=== PATIENT | female | born 1990 ===

== ENCOUNTER 2020-03-01 19:22 | Emergency (ER) | payer OTHER, SELFPAY ==
[2020-03-01 19:42] VITALS: BP 133/64; PULSE 71; RESP 16; TEMP 37.7; O2SAT 100; BMI 58.6
--- NOTE | 2020-03-01 19:42 | PC.NURSE ---
waiting for singing telegram performer to arrive.
--- NOTE | 2020-03-01 20:52 | XR_ITS ---
EXAMINATION: XR CHEST CLINICAL INFORMATION: Shortness of breath COMPARISON: None TECHNIQUE: Frontal view of the chest was obtained. 8:58 PM FINDINGS: No significant abnormality is noted involving the heart, lungs, mediastinum, bony thorax or soft tissues. XR/XR chest 1V IMPRESSION: Unremarkable examination.
[2020-03-01] MEDS: predniSONE 20 MG TABLET 40 MG PO (21:12)
[2020-03-01] MEDS: Albuterol/Iprat 2.5/0.5MG 3 ML AMPUL.NEB INHALE (21:28)
[2020-03-01 21:51] LABS: Anion Gap 13 (12-20); Blood Urea Nitrogen 15 mg/dL (9-16); Calcium 8.4 mg/dL (8.4-10.2); Carbon Dioxide 21 mmol/L (22-29); Chloride 110 mmol/L (96-108); Estimated Glomerular Filt Rate > 60; Glucose Random 89 mg/dL (60-115); Potassium 3.9 mmol/l (3.3-5.1); Sodium 140 mmol/L (135-145)
[2020-03-01 21:56] LABS: Troponin-I High Sensitivity < 3.5 ng/L (<3.5-17.0)
[2020-03-01 22:03] LABS: D Dimer < 200 NG/ML
[2020-03-01 22:38] VITALS: BP 115/68; PULSE 80; RESP 14; O2SAT 99
[2020-03-01 22:42] LABS: Glucose Urine UA NEG (NEG); Leukocyte Esterase Urine NEG (NEG); Nitrite Urine NEG (NEG); PH 6.5 (5.0-8.0); Urine Blood NEG (NEG); Urine Ketones NEG (NEG); Urine Protein NEG (NEG-TRACE)
[2020-03-01 22:44] LABS: Appearance Urine CLEAR; Color Urine YELLOW; UPreg QC Valid YES; Urine Pregnancy NEGATIVE (NEGATIVE)
--- NOTE | 2020-03-01 23:18 | ED_ITS ---
HPI - Asthma General Chief Complaint: Asthma Stated Complaint: Asthma Time Seen by Provider: 03/01/20 20:51 Source: patient and public health internship Mode of arrival: ambulatory Limitations: no limitations History of Present Illness HPI Narrative: 30-year-old female with history of asthma presented with 2 days of progressive shortness of breath, wheezing, runny nose, patient also had 1 episode of epistaxis which resolved now, patient had a history of childhood asthma. Symptoms was progressively worsening since yesterday, patient describing as constant, with chest tightness and discomfort, but no radiation, associated with runny nose, dry cough, no alleviating factor, worsen by exercising. Related Data Previous Rx's Medication Instructions Recorded albuterol sulfate [ProAir HFA] 1 inh INHALATION QID PRN #18 g 03/01/20 prednisone 20 mg PO BID #10 tab 03/01/20 Allergies Allergy/AdvReac Type Severity Reaction Status Date / Time No Known Allergies Allergy Unverified 01/08/20 19:38 [No Known Allergies*] Review of Systems Review of Systems: All other systems are reviewed and are negative Constitutional: Reports as per HPI and Reports no additional constitutional complaints Eyes: Reports as per HPI and Reports no additional eye complaints Reports system reviewed and no additional complaints, except as documented Cardiovascular: Reports as per HPI and Reports no additional cardiovascular complaints Respiratory: Reports as per HPI and Reports no additional respiratory complaints Gastrointestinal: Reports as per HPI and Reports no additional gastrointestinal complaints Genitourinary: Reports no additional female genitourinary complaints Musculoskeletal: Reports no additional musculoskeletal complaints Skin/Breast: Reports system reviewed and no additional complaints, except as docu Psychiatric: Reports no additional psychiatric complaints Endocrine: Reports no additional endocrine complaints Hematologic/Lymphatic: Reports no additional hematologic/lymphatic complaints Allergic/Immunologic: Reports no additional allergic/immunologic complaints Reports system reviewed and no additional complaints, except as documented and Reports Abnormal speech present [facility] Past Medical History Medical History Asthma Social History Social History Alcohol intake: never Smoking Status: Never smoker Use of substances other than those prescribed or required for medical reasons: No Advance Directives: No Advance Directives Information Provided: Yes Physical Exam Vital Signs: Vital Signs: Last Vital Signs Temp 99.8 F 03/01/20 19:42 Pulse 80 03/01/20 22:38 Resp 14 03/01/20 22:38 BP 115/68 03/01/20 22:38 Pulse Ox 99 03/01/20 22:38 Body Mass Index 58.6 Vital signs have been reviewed as normal and appeared to be correct. Blood pressure normal. Heart rate normal. Respiration rate normal. Temperature normal. Oxygen saturation normal. Appearance: Alert. Oriented X3. No acute distress. Head: Normal external exam. Normocephalic. Atraumatic. No Galarza signs noted. No raccoon eyes noted Eyes: PERRLA. EOMI. Conjunctiva and sclera normal. Eyelids normal. ENT: EAC normal. TM's Normal. Pharynx normal. Uvula midline. Moist mucous membranes. No trismus noted. No drooling noted. No muffled voice noted. Neck: Normal inspection. Neck supple. FROM. No adenopathy. Thyroid Normal. No m eningeal signs. No neck mass noted. CVS: Normal heart rate and rhythm. Heart sound normal. No murmurs noted. Pulses normal throughout. Respiratory: No respiratory distress. Painless inspiration. Breath sounds normal. rales/rhonchi noted. Positive mild diffuse expiratory wheezing with prolonged expiratory phase, Chest nontender. No accessory muscle usage noted or decreased air movement noted. Abdomen: Soft and nontender. Bowel sounds normal in all 4 quadrants. No distention noted. No organomegaly noted. No visible injury noted. Back: No CVA tenderness. Full range of motion noted. Skin: Skin warm and dry. Normal skin color. Normal skin turgor. No rashes/lesions/lacerations noted. Extremities: No lower extremity edema. Extremities exhibit normal range of motion. Extremities nontender. Neuro: Oriented X 3. No motor deficit. No sensory deficit. Reflexes normal. Course Course Course Narrative: Acute bronchitis/asthma exacerbation. Check x-ray/labs/COVID testing. Bronchodilator/prednisone/reassess. MDM - Asthma MDM Narrative Medical decision making narrative: Assessment and plan. Acute bronchitis likely secondary to upper respiratory infection, patient feels better with prednisone/bronchodilator, COVID testing is negative, patient maintaining O2 sat and normal vital sign. D-dimer is less than 200 which is negative no concern of DVT/PE. Will discharge home with prednisone and bronchodilator. Differential Diagnosis Differential diagnosis: Likely Acute exacerbation and Pneumonia Lab Data Attestation: I reviewed the patient's lab results. Result diagrams: 03/01/20 21:21 03/01/20 21:21 Labs: Lab Results 03/01/20 03/01/20 03/01/20 Range/Units 21:20 21:20 21:21 D-Dimer Cancelled Sodium 140 (135-145) mmol/L Potassium 3.9 (3.3-5.1) mmol/l Chloride 110 H (96-108) mmol/L Carbon Dioxide 21 L (22-29) mmol/L Anion Gap 13 (12-20) BUN 15 (9-16) mg/dL Creatinine 0.77 (0.5-1.4) mg/dL Estim Creat Clear Calc 157.0 Estimated GFR > 60 Random Glucose 89 (60-115) mg/dL Calcium 8.4 (8.4-10.2) mg/dL Troponin I High Sens < 3.5 (<3.5-17.0) ng/L Urine Color Urine Appearance Urine pH (5.0-8.0) Ur Specific [place] (1.005-1.025) Urine Protein (NEG-TRACE) MG/DL Urine Glucose (UA) (NEG) MG/DL Urine Ketones (NEG) MG/DL Urine Blood (NEG) Urine Nitrite (NEG) Ur Leukocyte Esterase (NEG) Urine Test (NEGATIVE) Coronavirus (PCR) (Negative) 03/01/20 03/01/20 03/01/20 Range/Units 21:37 22:27 22:27 D-Dimer < 200 Sodium (135-145) mmol/L Potassium (3.3-5.1) mmol/l Chloride (96-108) mmol/L Carbon Dioxide (22-29) mmol/L Anion Gap (12-20) BUN (9-16) mg/dL Creatinine (0.5-1.4) mg/dL Estim Creat Clear Calc Estimated GFR Random Glucose (60-115) mg/dL Calcium (8.4-10.2) mg/dL Troponin I High Sens (<3.5-17.0) ng/L Urine Color Urine Appearance Urine pH (5.0-8.0) Ur Specific [place] (1.005-1.025) Urine Protein (NEG-TRACE) MG/DL Urine Glucose (UA) (NEG) MG/DL Urine Ketones (NEG) MG/DL Urine Blood (NEG) Urine Nitrite (NEG) Ur Leukocyte Esterase (NEG) Urine Test NEGATIVE (NEGATIVE) Coronavirus (PCR) NEGATIVE (Negative) 03/01/20 Range/Units 22:27 D-Dimer Sodium (135-145) mmol/L Potassium (3.3-5.1) mmol/l Chloride (96-108) mmol/L Carbon Dioxide (22-29) mmol/L Anion Gap (12-20) BUN (9-16) mg/dL Creatinine (0.5-1.4) mg/dL Estim Creat Clear Calc Estimated GFR Random Glucose (60-115) mg/dL Calcium (8.4-10.2) mg/dL Troponin I High Sens (<3.5-17.0) ng/L Urine Color YELLOW Urine Appearance CLEAR Urine pH 6.5 (5.0-8.0) Ur Specific [place] 1.020 (1.005-1.025) Urine Protein NEG (NEG-TRACE) MG/DL Urine Glucose (UA) NEG (NEG) MG/DL Urine Ketones NEG (NEG) MG/DL Urine Blood NEG (NEG) Urine Nitrite NEG (NEG) Ur Leukocyte Esterase NEG (NEG) Urine Test (NEGATIVE) Coronavirus (PCR) (Negative) Discharge Plan Discharge Clinical Impression: Acute bronchitis Qualifiers: Bronchitis organism: unspecified organism Qualified Code(s): J20.9 - Acute bronchitis, unspecified Asthma with acute exacerbation Qualifiers: Asthma severity: mild Asthma persistence: intermittent Qualified Code(s): J45.21 - Mild intermittent asthma with (acute) exacerbation Patient Disposition: Home, Self-Care Instructions: Acute Bronchitis (ED) Prescriptions: New albuterol sulfate [ProAir HFA] 90 mcg/actuation HFA aerosol inhaler 1 inh inhalation QID PRN (Reason: shortness of breath or wheezing) Qty: 18 RF: 0 prednisone 20 mg tablet 20 mg PO BID Qty: 10 RF: 0 Referrals: Rae Hernandez MD [Primary Care Provider] - 2 days
[2020-03-01 23:30] LABS: SARS COV2 PCR INHOUSE NEGATIVE (Negative)
== END 2020-03-01 23:48 | disposition home or self-care (01) ==
PROVIDERS: Emergency Provider Emergency Medicine; PCP Internal Medicine
DX: J20.9 Acute bronchitis, unspecified (principal); J45.21 Mild intermittent asthma with (acute) exacerbation; Z20.828 Contact with and (suspected) exposure to other viral communicable diseases; Z79.899 Other long term (current) drug therapy
CPT/HCPCS: 36415; 71045; 80048; 81003; 81025; 84484; 85379; 94640; 99284; U0003

== ENCOUNTER 2020-03-17 08:07 | Outpatient (REF) | payer OTHER, SELFPAY | END 2020-03-17 08:08 | disposition home or self-care (01) | LOC: HO.LAB 08:07 | PROVIDERS: Visit Provider Internal Medicine | DX: Z20.828 Contact with and (suspected) exposure to other viral communicable diseases (principal) | CPT/HCPCS: C9803; U0003 ==

== ENCOUNTER 2020-04-25 00:37 | Emergency (ER) | payer OTHER, SELFPAY ==
[2020-04-25 00:42] VITALS: BP 133/84; PULSE 91; RESP 16; TEMP 36.9; O2SAT 99; BMI 26.4
[2020-04-25 01:28] LABS: Glucose, Whole Blood 95 mg/dL (60-115)
--- NOTE | 2020-04-25 01:54 | ED.GENADULT ---
HPI - General Adult General Chief complaint: Dizziness Stated complaint: DIZZINESS Time Seen by Provider: 04/25/20 01:46 Source: patient Mode of arrival: ambulatory Limitations: language barrier History of Present Illness HPI narrative: Patient with multiple complaints complaining of dry mouth and drinking lots of water and urinating a lot asked her PCP sent her here for check for diabetes also patient had COVID test done 4 days ago report still pending patient previous blood sugar in February was normal denies any cough or shortness of breath no nausea or vomiting Onset (ago): week(s) (1) Related Data Previous Rx's Medication Instructions Recorded albuterol sulfate [ProAir HFA] 1 inh INHALATION QID PRN #18 g 03/01/20 prednisone 20 mg PO BID #10 tab 03/01/20 Allergies Allergy/AdvReac Type Severity Reaction Status Date / Time No Known Allergies Allergy Verified 04/25/20 00:42 [No Known Allergies*] Review of Systems Review of Systems: Yes all other systems are reviewed and are negative PMFSH Past Medical History Medical History Asthma Hx of ovarian cyst Surgical History Hx of section Social History Social History Alcohol intake: never Smoking Status: Never smoker Advance Directives: No Advance Directives Information Provided: No Physical Exam Vital Signs: Vital Signs: Last Vital Signs Temp 98.4 F 04/25/20 00:42 Pulse 91 04/25/20 00:42 Resp 16 04/25/20 00:42 BP 133/84 04/25/20 00:42 Pulse Ox 99 04/25/20 00:42 Body Mass Index 26.4 Appearance: Alert. Oriented X3. No acute distress. Anxious Eyes: Pupils equal, round and reactive to light. ENT: Pharynx normal. Moist oral mucosa no lesions Neck: Normal inspection. Neck supple. CVS: Normal heart rate and rhythm. Pulses normal. Respiratory: No respiratory distress. Breath sounds normal. Abdomen: Soft and nontender. Bowel sounds are present, no mass palpable, no CVA tenderness Skin: Skin warm and dry. Normal skin color. Normal skin turgor. Extremities: No lower extremity edema. Neuro: Oriented X 3. No motor deficit. No sensory deficit. Course Course Course Narrative: Patient's blood sugar 95 no diabetic symptoms likely from anxiety patient already has a COVID test and results will come soon patient advised to follow with PCP Medical Decision Making Lab Data Labs: Lab Results 04/25/20 Range/Units 01:22 POC Glucose 95 (60-115) mg/dL Discharge Plan Discharge Prescriptions: No Action albuterol sulfate [ProAir HFA] 90 mcg/actuation HFA aerosol inhaler 1 inh inhalation QID PRN (Reason: shortness of breath or wheezing) Qty: 18 RF: 0 prednisone 20 mg tablet 20 mg PO BID Qty: 10 RF: 0
[2020-04-25 02:12] LABS: Glucose Urine UA NEG (NEG); Leukocyte Esterase Urine NEG (NEG); Nitrite Urine NEG (NEG); Specific Gravity - Urine >= 1.030 (1.005-1.025); Urine Blood TRACE (NEG); Urine Ketones NEG (NEG); Urine Protein NEG (NEG-TRACE)
[2020-04-25 03:02] LABS: Appearance Urine CLEAR; Color Urine YELLOW
[2020-04-25 03:15] LABS: Squamous Epithelial Cell Urine TRACE /LPF; WBC Urine 0 /HPF (0-4)
[2020-04-25 03:16] LABS: UPreg QC Valid YES; Urine Pregnancy NEGATIVE (NEGATIVE)
== END 2020-04-25 03:44 | disposition home or self-care (01) ==
PROVIDERS: Emergency Provider Internal Medicine
DX: R42 Dizziness and giddiness (principal); Z20.828 Contact with and (suspected) exposure to other viral communicable diseases
CPT/HCPCS: 81001; 81003; 81025; 82947; 99283

== ENCOUNTER 2022-09-07 23:47 | Emergency (ER) | payer OTHER, SELFPAY ==
[2022-09-07 23:50] VITALS: BP 104/59; PULSE 91; RESP 18; TEMP 36.6; O2SAT 97; BMI 24.4
[2022-09-08 00:01] VITALS: BP 128/56; PULSE 78; RESP 17; O2SAT 99
--- NOTE | 2022-09-08 00:05 | ED.ALLEREA ---
HPI - Allergic Reaction General Chief complaint: Allergic Reaction Stated complaint: ?Allergic reaction Time Seen by Provider: 09/08/22 00:04 Source: patient Mode of arrival: ambulatory Limitations: no limitations History of Present Illness HPI narrative: Patient with no history of allergic reaction noticed hives on bilateral arms feel throat closing lips tingling just prior to arrival unknown allergen no shortness of breath speaking full sentences no nausea no vomiting unknown allergen Related Data Previous Rx's Medication Instructions Recorded albuterol sulfate 90 mcg/actuation 1 inh inhalation QID PRN shortness 03/01/20 aerosol inhaler (ProAir HFA) of breath or wheezing #18 grams prednisone 20 mg tablet 20 mg PO BID #10 tabs 03/01/20 Allergies Allergy/AdvReac Type Severity Reaction Status Date / Time No Known Allergies Allergy Verified 09/07/22 23:50 [No Known Allergies*] Review of Systems Review of Systems: Yes all other systems are reviewed and are negative PMFSH Past Medical History Medical History Asthma Hx of ovarian cyst Surgical History Hx of section Social History Social History Alcohol intake: current Alcohol intake frequency: holidays/special occasions only Smoked in Last 30 Days: No Use of substances other than those prescribed or required for medical reasons: No Advance Directives: No Advance Directives Information Provided: Yes Physical Exam ED Vital Signs: Vital Signs - 24 hr 09/07/22 23:50 09/08/22 00:01 Temperature 97.9 F Pulse Rate 91 78 Respiratory Rate 18 17 Blood Pressure 104/59 L 128/56 L Pulse Oximetry 97 99 Oxygen Delivery Method Room Air Room Air BMI result Body Mass Index 24.4 Appearance: Alert. Oriented X3. No acute distress. ENT: Pharynx normal. Oral Mucosa moist slight swelling of the lower lip tongue normal uvula normal no stridor Neck: Normal inspection. Neck supple. CVS: Normal heart rate and rhythm. Pulses normal. Respiratory: No respiratory distress. Equal air entry bilateral, Abdomen: Soft and nontender. Bowel sounds are present, Skin: Skin warm and dry. Hives on upper extremity Extremities: No lower extremity edema. No calf tenderness Neuro: Oriented X 3. Medications Administered Discontinued Medications Generic Name Dose Route Start Last Admin Trade Name Freq PRN Reason Stop Dose Admin Diphenhydramine HCl 25 mg 09/08/22 00:07 09/08/22 00:19 Diphenhydramine Hcl 50 Mg/Ml Vial IVPUSH 09/08/22 00:08 25 mg ONCE ONE Administration Famotidine 20 mg 09/08/22 00:07 09/08/22 00:19 Famotidine/Pf 20 Mg/2 Ml Vial IVPUSH 09/08/22 00:08 20 mg ONCE ONE Administration Methylprednisolone Sodium Succinate 125 mg 09/08/22 00:07 09/08/22 00:19 Methylprednisolone Sod Succ 125 Mg/2 Ml Vial IVPUSH 09/08/22 00:08 125 mg ONCE ONE Administration Medical Decision Making Medical Decision Making [facility] Narrative: Patient with mild allergic reaction it is pointed to Benadryl and Solu-Medrol unknown allergen discharge patient home on Benadryl and prednisone Discharge Plan Discharge Clinical Impression: Allergic reaction Prescriptions: No Action albuterol sulfate [ProAir HFA] 90 mcg/actuation HFA aerosol inhaler 1 inh inhalation QID PRN (Reason: shortness of breath or wheezing) Qty: 18 0RF prednisone 20 mg tablet 20 mg PO BID Qty: 10 0RF
[2022-09-08] MEDS: methylPREDNISolone Sod Succ 125 MG/2 ML VIAL IVPUSH (00:19)
[2022-09-08] MEDS: diphenhydrAMINE HCL 50 MG/ML VIAL 25 MG IVPUSH (00:19)
[2022-09-08] MEDS: Famotidine/PF 20 MG/2 ML VIAL IVPUSH (00:19)
--- NOTE | 2022-09-08 00:30 | PC.NURSE ---
pt brought back from waiting room, appears to be moving air well, lung sounds clear bilaterally, throat does not appear to be swelling, no redness. Pt has bilateral redness on arms and legs, denies itchiness. Pt verbalizes her throat feeling better after medications
== END 2022-09-08 01:07 | disposition home or self-care (01) ==
PROVIDERS: Emergency Provider Internal Medicine; PCP Internal Medicine
DX: L50.0 Allergic urticaria (principal)
CPT/HCPCS: 96374; 96375; 99284; J1200; J2930

== ENCOUNTER 2022-11-05 19:00 | Emergency (ER) | payer OTHER, SELFPAY ==
--- NOTE | ~2022-11-05 | US_ITS ---
EXAMINATION: US PELVIS CLINICAL INFORMATION: Lower abdominal pain radiating to umbilical area COMPARISON: None available. TECHNIQUE: Ultrasound of the pelvis is performed using both transabdominal and transvaginal transducers along with Doppler. Transvaginal imaging is performed due to inadequate visualization transabdominally. FINDINGS: Uterus: Surgically absent Adnexa: Both ovaries are visualized. There is normal color flow to the adnexa. There is no ovarian torsion. There is no pelvic ascites or fluid collection. Right ovary measures 3.0 x 1.7 x 2.1 cm. Volume 5.6 mL. Positive Doppler arterial and venous waveform seen. Small likely involuted 1.9 cm cyst incidentally noted Left ovary measures 1.9 x 1.1 x 1.7 cm. Volume 1.9 mL. Normal appearing arterial and venous waveform patterns. No significant free fluid US/US pelvic and transvaginal IMPRESSION: Uterus is surgically absent. No acute abnormality seen.
--- NOTE | ~2022-11-05 | CT_ITS ---
EXAMINATION: CT ABDOMEN AND PELVIS WITH CONTRAST CLINICAL INFORMATION: Lower abdominal pain radiating upwards. History of tummy tuck . COMPARISON: Ultrasound pelvis 11/05/2022 TECHNIQUE: Multidetector volumetric images were obtained from the superior aspect of the liver through the pubic symphysis following administration 85 mL of Omnipaque 350 intravenous contrast. Sagittal and coronal reformatted images were obtained on the technologist's workstation. Oral contrast: No This CT examination was performed using dose optimization techniques as appropriate, variously including the following: *Automated exposure control *Adjustment of mA and/or kV according to patient size (this includes techniques or standardized protocols for targeted exams where dose is matched to indication/reason for exam; i.e. extremities or head) *Use of iterative reconstruction technique DLP: 511 mGy-cm FINDINGS: LUNG BASES: The visualized lung bases are unremarkable. LIVER, GALLBLADDER, AND BILIARY TREE: The liver is enlarged measuring 19.6 cm in cephalocaudad dimension with decreased attenuation suggesting hepatic steatosis. No focal hepatic lesion or biliary ductal dilatation is present. The gallbladder is unremarkable with no evidence of radiopaque gallstones, gallbladder wall thickening, or obvious pericholecystic inflammatory changes. PANCREAS: Unremarkable. SPLEEN: Unremarkable. ADRENAL GLANDS: Unremarkable. KIDNEYS AND URETERS: The kidneys are normal in size, shape, and attenuation. No hydronephrosis, hydroureter, or calculi seen. No perinephric stranding. BLADDER: Unremarkable. GASTROINTESTINAL TRACT: The small and large bowel are unremarkable without evidence of obstruction. There are inflammatory changes seen in the pelvic fat surrounding the bladder and lower portion of the mesentery. The appendix is unremarkable. ABDOMINAL WALL: No significant hernia is appreciated. Some mild streaky changes are seen in the infra umbilical region in the abdominal wall but no fluid collections are seen. LYMPH NODES: No retroperitoneal lymphadenopathy. Some inflammatory changes are seen in the fat surrounding the dome of the bladder and some pelvic mesentery of uncertain significance. Correlate with urinalysis for cystitis an operative history. VASCULAR: The aorta and iliofemoral vessels all appear normal. The IVC,, renal veins, portal venous system and hepatic veins all appear normal. Of note, the right gonadal/ovarian vein is dilated and contains thrombus (6:32). The thrombus ends a few cm before the junction with the IVC. A left ovarian vein is unremarkable. PELVIC VISCERA: Uterus is not present. An abnormal adnexal mass is not seen. OSSEOUS STRUCTURES: Unremarkable. CT/CT abdomen pelvis w IV con IMPRESSION: 1. Right ovarian vein thrombosis. 2. Incidental note made of an enlarged fatty liver. 3. There are inflammatory changes seen in the fat surrounding some small bowel loops in the in the dome of the bladder of uncertain significance.. Fleischner guidelines were followed. This critical result was discussed with Dr. Jacobs at 9:44 PM on the evening of the exam and it was ascertained that the content and urgency of the report was understood at the time of direct communication.
--- NOTE | ~2022-11-05 | US_ITS ---
EXAMINATION: US PELVIS CLINICAL INFORMATION: Lower abdominal pain radiating to umbilical area COMPARISON: None available. TECHNIQUE: Ultrasound of the pelvis is performed using both transabdominal and transvaginal transducers along with Doppler. Transvaginal imaging is performed due to inadequate visualization transabdominally. FINDINGS: Uterus: Surgically absent Adnexa: Both ovaries are visualized. There is normal color flow to the adnexa. There is no ovarian torsion. There is no pelvic ascites or fluid collection. Right ovary measures 3.0 x 1.7 x 2.1 cm. Volume 5.6 mL. Positive Doppler arterial and venous waveform seen. Small likely involuted 1.9 cm cyst incidentally noted Left ovary measures 1.9 x 1.1 x 1.7 cm. Volume 1.9 mL. Normal appearing arterial and venous waveform patterns. No significant free fluid US/US pelvic ovarian doppler IMPRESSION: Uterus is surgically absent. No acute abnormality seen.
[2022-11-05 19:14] VITALS: BP 110/65; PULSE 124; RESP 18; TEMP 37; O2SAT 99; BMI 25.7
--- NOTE | 2022-11-05 19:22 | ED_ITS ---
HPI - Abdominal Pain General Chief Complaint: Abdominal Pain Stated Complaint: Abdominal pain Time Seen by Provider: 11/05/22 21:05 Source: patient and [facility] living [facility] Mode of arrival: ambulatory Limitations: no limitations History of Present Illness HPI narrative: 32-year-old female came in for evaluation of abdominal pain started this morning, pain started around the umbilical area radiating down to the suprapubic area, describes the pain as dull aching pain in abdomen has been constant since this morning pain was associated with nausea but no vomiting, no bowel movement for the past 2 days but passing flatus. No fever, chills. Never had this pain in the past. No dysuria, no frequency urination, no hematuria. Past surgical history is significant for , partial hysterectomy, tummy tuck. Related Data Previous Rx's Medication Instructions Recorded albuterol sulfate 90 mcg/actuation 1 inh inhalation QID PRN shortness 03/01/20 aerosol inhaler (ProAir HFA) of breath or wheezing #18 grams prednisone 20 mg tablet 20 mg PO BID #10 tabs 03/01/20 diphenhydramine HCl 25 mg capsule 50 mg PO TID PRN allergic reaction 09/08/22 (Benadryl) #30 caps prednisone 20 mg tablet 40 mg PO DAILY #10 tabs 09/08/22 Allergies Allergy/AdvReac Type Severity Reaction Status Date / Time No Known Allergies Allergy Verified 11/05/22 19:14 [No Known Allergies*] Review of Systems Review of Systems All other systems are reviewed and are negative Constitutional: Reports as per HPI and Reports no additional constitutional complaints Eyes: Reports as per HPI and Reports no additional eye complaints Reports system reviewed and no additional complaints, except as documented Cardiovascular: Reports as per HPI and Reports no additional cardiovascular complaints Respiratory: Reports as per HPI and Reports no additional respiratory complaints Gastrointestinal: Reports as per HPI and Reports no additional gastrointestinal complaints Genitourinary: Reports no additional female genitourinary complaints Musculoskeletal: Reports no additional musculoskeletal complaints Skin/Breast: Reports system reviewed and no additional complaints, except as docu Psychiatric: Reports no additional psychiatric complaints Endocrine: Reports no additional endocrine complaints Hematologic/Lymphatic: Reports no additional hematologic/lymphatic complaints Allergic/Immunologic: Reports no additional allergic/immunologic complaints Reports system reviewed and no additional complaints, except as documented and Reports Abnormal speech present [facility] Past Medical History Medical History Asthma Hx of ovarian cyst Surgical History Hx of section Social History Social History Alcohol intake: never Smoked in Last 30 Days: No Use of substances other than those prescribed or required for medical reasons: No Advance Directives: No Advance Directives Information Provided: No Physical Exam ED Vital Signs: Vital Signs - 24 hr 11/05/22 19:14 11/05/22 20:51 11/05/22 22:00 Temperature 98.6 F 98.1 F 98.1 F Pulse Rate 124 H 90 95 Respiratory Rate 18 18 18 Blood Pressure 110/65 101/56 L 100/57 L Pulse Oximetry 99 96 Oxygen Delivery Method Room Air Room Air Room Air Oxygen Flow Rate 97 BMI result Body Mass Index 27.3 Vital signs have been reviewed as appeared to be correct. Blood pressure normal. Heart rate normal. Respiration rate normal. Temperature normal. Oxygen saturation normal. Appearance: Alert. Oriented X3. No acute distress. Head: Normal external exam. Normocephalic. Atraumatic. No Galarza signs noted. No raccoon eyes noted Eyes: PERRLA. EOMI. Conjunctiva and sclera normal. Eyelids normal. ENT: TM's Normal. Pharynx normal. Uvula midline. Moist mucous membranes. No trismus noted. No drooling noted. No muffled voice noted. Neck: Normal inspection. Neck supple. FROM. No adenopathy. Thyroid Normal. No meningeal signs. No neck mass noted. CVS: Normal heart rate and rhythm. Heart sound normal. No murmurs noted. Pulses normal throughout. Respiratory: No respiratory distress. Painless inspiration. Breath sounds normal. No wheezes/rales/rhonchi noted. Chest nontender. No accessory muscle usage noted or decreased air movement noted. Abdomen: Diffuse tender to the lower abdomen, voluntary guarding, rebound tenderness. Bowel sounds normal in all 4 quadrants. No distention noted. No organomegaly noted. No visible injury noted. Back: No CVA tenderness. Full range of motion noted. Skin: Skin warm and dry. Normal skin color. Normal skin turgor. No rashes/lesions/lacerations noted. Extremities: No lower extremity edema. Extremities exhibit normal range of motion. Extremities nontender. Neuro: Oriented X 3. Cranial nerve exam: II-XII are grossly intact No motor deficit. No sensory deficit. Reflexes normal. Course Course Course Narrative: PIERCE- 19:25pm - 32yoF who is Albanian-speaking with a PMHx of partial hysterectomy and tummy tuck presenting to the ED with c/o of fevers, chills, N/V, umbilical pain radiating to suprapubic areasince 11am bar captain. Reports associated constipation. States when I try to have intercourse I cant because it hurts too much. Reports a abnormal vaginal discharge. Deniues thoughts of STD's. Was at [facility] waiting room bar captain since 11 am and was give tylenol due to fever of 100.8. The wait was too long therefore she came here for further evaluation treatment. Plan: Labs, UA, ovarian US and CT scan of abd/pelvis ordered at this time. Patient stable to go to to be evaluated in the ED. Reevaluation(s) Reevaluation #1: 32-year-old female she presented with severe lower abdominal pain, exam is concern of an acute abdomen, patient had a white count of 21.[address] of the abdomen pelvis is showing ovarian vein thrombosis, the case was d iscussed with Dr. Alexandra who would like the patient to be transferred to [facility] for further evaluation, the case discussed with Dr. Norwood at [facility] who recommended to transfer the patient to [facility] at [facility] for further evaluation. 1. Will start the patient on heparin drip. 2. Morphine/Dilaudid for pain control. 3. Will arrange for transportation. Time: 23:08 Medical Decision Making Differential Diagnosis Differential Diagnoses: The differential diagnosis associated with the presentation includes (Ovarian torsion, UTI, colitis, diverticulitis, appendicitis, perforated viscus, UTI, severe anemia.) Admission/Observation Consideration of admission/observation: Escalation of care including admission/observation considered Consult Healthcare Provider Management of the patient was discussed with: Gold Frame Assembler (Dr. Alexandra) Lab Data [facility] Lab Attestation statement: I reviewed the patient's lab results. 11/05/22 19:32 11/05/22 19:33 Labs: Lab Results 11/05/22 11/05/22 11/05/22 Range/Units 19:32 19:32 19:32 WBC 21.3 H (4.8-10.8) X10*3/uL RBC 4.90 (4.20-5.50) X10*6/uL Hgb 12.5 (12.0-16.0) g/dl Hct 38.6 (37.0-47.0) % MCV 78.8 L (80.0-98.0) fL MCH 25.5 L (27.0-33.0) pg MCHC 32.4 (31.0-35.0) g/dl RDW 15.6 (11.0-16.0) % Plt Count 317 (160-400) X10*3/uL MPV 11.1 (9.4-12.3) fL Immature Gran % (Auto) 0.5 H (0.0-0.4) % Neut % (Auto) 91.6 H (45-73) % Lymph % (Auto) 4.3 L (20-40) % [place] % (Auto) 3.5 (2-11) % Eos % (Auto) 0.0 (0-4) % Baso % (Auto) 0.1 (0-2) % Lymph # (Auto) 0.9 L (1.2-4.9) X10*3/uL [place] # (Auto) 0.8 (0.1-1.2) X10*3/uL Eos # (Auto) 0.0 (0.0-0.4) X10*3/uL Baso # (Auto) 0.0 (0.0-0.2) X10*3/uL Abs Immat Gran (auto) 0.10 H (0.00-0.03) X10*3/uL Absolute Neuts (auto) 19.5 H (2.0-8.3) x10*3/uL Absolute Nucleated RBC 0.000 (0.0-0.012) X10*3/uL Nucleated RBC % (auto) 0.0 (0.0-0.2) /100WBC Smear Tech's Comments VERIFIED ESR 13 (0-20) MM/HR PT 12.9 (10.0-13.1) SEC INR 1.1 (0.9-1.1) Sodium (135-145) mmol/L Potassium (3.3-5.1) mmol/L Chloride (96-108) mmol/L Carbon Dioxide (22-29) mmol/L Anion Gap (12-20) BUN (9-16) mg/dL Creatinine (0.5-1.4) mg/dL Estim Creat Clear Calc Estimated GFR Random Glucose (60-115) mg/dL Lactic Acid (0.5-2.0) mmol/L Calcium (8.4-10.2) mg/dL Magnesium (1.6-2.6) mg/dL Total Bilirubin (0.0-1.0) mg/dL Direct Bilirubin (0.0-0.5) mg/dL AST (5-31) U/L ALT (0-31) U/L Alkaline Phosphatase (39-117) U/L C-Reactive Protein (< or = 0.50) mg/dL Total Protein (6.5-8.0) g/dL Albumin (3.5-5.0) g/dL Lipase (8-78) U/L Beta HCG, Quant mIU/mL Urine Color Urine Appearance Urine pH (5.0-9.0) Ur Specific [place] (1.005-1.025) Urine Protein (Neg-Trace) mg/dL Urine Glucose (UA) (Negative) mg/dL Urine Ketones (Negative) mg/dL Urine Blood (Negative) Urine Nitrite (Negative) Ur Leukocyte Esterase (Negative) Influenza Type A (PCR) (Negative) Influenza Type B (PCR) (Negative) RSV RNA Qual (PCR) (Negative) SARS-CoV-2 RNA (RT-PCR) (Negative) 11/05/22 11/05/22 11/05/22 Range/Units 19:32 19:32 19:33 WBC (4.8-10.8) X10*3/uL RBC (4.20-5.50) X10*6/uL Hgb (12.0-16.0) g/dl Hct (37.0-47.0) % MCV (80.0-98.0) fL MCH (27.0-33.0) pg MCHC (31.0-35.0) g/dl RDW (11.0-16.0) % Plt Count (160-400) X10*3/uL MPV (9.4-12.3) fL Immature Gran % (Auto) (0.0-0.4) % Neut % (Auto) (45-73) % Lymph % (Auto) (20-40) % [place] % (Auto) (2-11) % Eos % (Auto) (0-4) % Baso % (Auto) (0-2) % Lymph # (Auto) (1.2-4.9) X10*3/uL [place] # (Auto) (0.1-1.2) X10*3/uL Eos # (Auto) (0.0-0.4) X10*3/uL Baso # (Auto) (0.0-0.2) X10*3/uL Abs Immat Gran (auto) (0.00-0.03) X10*3/uL Absolute Neuts (auto) (2.0-8.3) x10*3/uL Absolute Nucleated RBC (0.0-0.012) X10*3/uL Nucleated RBC % (auto) (0.0-0.2) /100WBC Smear Tech's Comments ESR (0-20) MM/HR PT (10.0-13.1) SEC INR (0.9-1.1) Sodium 137 (135-145) mmol/L Potassium 3.4 (3.3-5.1) mmol/L Chloride 105 (96-108) mmol/L Carbon Dioxide 21 L (22-29) mmol/L Anion Gap 14 (12-20) BUN 9 (9-16) mg/dL Creatinine 0.68 (0.5-1.4) mg/dL Estim Creat Clear Calc 110.2 Estimated GFR > 60 Random Glucose 111 (60-115) mg/dL Lactic Acid 1.0 (0.5-2.0) mmol/L Calcium 9.4 D (8.4-10.2) mg/dL Magnesium 1.5 L (1.6-2.6) mg/dL Total Bilirubin 0.6 (0.0-1.0) mg/dL Direct Bilirubin 0.2 (0.0-0.5) mg/dL AST 15 (5-31) U/L ALT 22 (0-31) U/L Alkaline Phosphatase 83 (39-117) U/L C-Reactive Protein 4.54 H (< or = 0.50) mg/dL Total Protein 7.0 (6.5-8.0) g/dL Albumin 4.0 (3.5-5.0) g/dL Lipase 23 (8-78) U/L Beta HCG, Quant < 2 mIU/mL Urine Color Urine Appearance Urine pH (5.0-9.0) Ur Specific [place] (1.005-1.025) Urine Protein (Neg-Trace) mg/dL Urine Glucose (UA) (Negative) mg/dL Urine Ketones (Negative) mg/dL Urine Blood (Negative) Urine Nitrite (Negative) Ur Leukocyte Esterase (Negative) Influenza Type A (PCR) (Negative) Influenza Type B (PCR) (Negative) RSV RNA Qual (PCR) (Negative) SARS-CoV-2 RNA (RT-PCR) (Negative) 11/05/22 11/05/22 Range/Units 19:34 20:11 WBC (4.8-10.8) X10*3/uL RBC (4.20-5.50) X10*6/uL Hgb (12.0-16.0) g/dl Hct (37.0-47.0) % MCV (80.0-98.0) fL MCH (27.0-33.0) pg MCHC (31.0-35.0) g/dl RDW (11.0-16.0) % Plt Count (160-400) X10*3/uL MPV (9.4-12.3) fL Immature Gran % (Auto) (0.0-0.4) % Neut % (Auto) (45-73) % Lymph % (Auto) (20-40) % [place] % (Auto) (2-11) % Eos % (Auto) (0-4) % Baso % (Auto) (0-2) % Lymph # (Auto) (1.2-4.9) X10*3/uL [place] # (Auto) (0.1-1.2) X10*3/uL Eos # (Auto) (0.0-0.4) X10*3/uL Baso # (Auto) (0.0-0.2) X10*3/uL Abs Immat Gran (auto) (0.00-0.03) X10*3/uL Absolute Neuts (auto) (2.0-8.3) x10*3/uL Absolute Nucleated RBC (0.0-0.012) X10*3/uL Nucleated RBC % (auto) (0.0-0.2) /100WBC Smear Tech's Comments ESR (0-20) MM/HR PT (10.0-13.1) SEC INR (0.9-1.1) Sodium (135-145) mmol/L Potassium (3.3-5.1) mmol/L Chloride (96-108) mmol/L Carbon Dioxide (22-29) mmol/L Anion Gap (12-20) BUN (9-16) mg/dL Creatinine (0.5-1.4) mg/dL Estim Creat Clear Calc Estimated GFR Random Glucose (60-115) mg/dL Lactic Acid (0.5-2.0) mmol/L Calcium (8.4-10.2) mg/dL Magnesium (1.6-2.6) mg/dL Total Bilirubin (0.0-1.0) mg/dL Direct Bilirubin (0.0-0.5) mg/dL AST (5-31) U/L ALT (0-31) U/L Alkaline Phosphatase (39-117) U/L C-Reactive Protein (< or = 0.50) mg/dL Total Protein (6.5-8.0) g/dL Albumin (3.5-5.0) g/dL Lipase (8-78) U/L Beta HCG, Quant mIU/mL Urine Color Yellow Urine Appearance Clear Urine pH 5.5 (5.0-9.0) Ur Specific [place] 1.025 (1.005-1.025) Urine Protein Negative (Neg-Trace) mg/dL Urine Glucose (UA) Negative (Negative) mg/dL Urine Ketones Negative (Negative) mg/dL Urine Blood Negative (Negative) Urine Nitrite Negative (Negative) Ur Leukocyte Esterase Negative (Negative) Influenza Type A (PCR) NEGATIVE (Negative) Influenza Type B (PCR) NEGATIVE (Negative) RSV RNA Qual (PCR) NEGATIVE (Negative) SARS-CoV-2 RNA (RT-PCR) NEGATIVE (Negative) Independent Interpretation I performed an independent interpretation of an: Ultrasound (Pelvic: No acute pelvic pathology.) and CT Scan (Abdomen pelvis: Right ovarian vein thrombosis.) Radiology Impression Discussion of test interpretation with radiology: I have reviewed the radiologist's reading. Medications Administered Generic Name Dose Route Start Last Admin Trade Name Freq PRN Reason Stop Dose Admin Sodium Chloride 1,000 mls @ 999 mls/hr 11/05/22 22:23 11/05/22 22:36 Ns IV 11/05/22 23:23 999 mls/hr .Q1H1M ONE Administration Discontinued Medications Generic Name Dose Route Start Last Admin Trade Name Freq PRN Reason Stop Dose Admin Magnesium Sulfate 2 gm in 50 mls @ 25 mls/hr 11/05/22 20:02 11/05/22 21:08 Magnesium Sulfate/H2o IV 11/05/22 22:01 25 mls/hr ONCE ONE Administration Sodium Chloride 1,973.13 mls @ 1,973.13 mls/hr 11/05/22 20:02 11/05/22 20:14 Ns 30 ml/kg infuse over 1 hr (1973.13 ml) 11/05/22 21:01 1,973.13 mls/hr IV Administration .Q1H STA Ceftriaxone Sodium 2 gm/ 50 mls @ 100 mls/hr 11/05/22 20:15 11/05/22 21:26 Sodium Chloride IV 11/05/22 20:44 Infused ONCE ONE Infusion Iohexol 100 ml 11/05/22 21:07 11/05/22 21:08 Iohexol 350 Mg/Ml 100 Ml Infus..Btl IV 11/05/22 21:08 85 ml ONCE ONE Administration Morphine Sulfate 4 mg 11/05/22 20:03 11/05/22 20:21 Morphine Sulfate 4 Mg/Ml Cartridge IVPUSH 11/05/22 20:04 4 mg ONCE ONE Administration Protocol Morphine Sulfate 1 mg 11/05/22 21:21 11/05/22 21:30 Morphine Sulfate 2 Mg/Ml Cartridge IVPUSH 11/05/22 21:22 1 mg ONCE ONE Administration Protocol Ondansetron HCl 4 mg 11/05/22 20:03 11/05/22 20:21 Ondansetron Hcl 4 Mg/2 Ml Vial IVPUSH 11/05/22 20:04 4 mg ONCE ONE Administration Critical Care Time Critical Care Time Critical Care Time: Yes Total Critical Care Time: 60 Attestation: I spent 60 minutes providing critical care service to the patient, this including time spent at the bedside to evaluate the patient, reassess the patient, monitoring vital signs, review labs, and radiographic studies, counseling the patient/family, discussing the case with consultants, disposition the patient. Discharge Plan Discharge Clinical Impression: Thrombosis of ovarian vein, Abdominal pain Patient Disposition: [facility] Transfer Details: [facility] Prescriptions: No Action albuterol sulfate [ProAir HFA] 90 mcg/actuation HFA aerosol inhaler 1 inh inhalation QID PRN (Reason: shortness of breath or wheezing) Qty: 18 0RF prednisone 20 mg tablet 20 mg PO BID Qty: 10 0RF prednisone 20 mg tablet 40 mg PO DAILY Qty: 10 0RF diphenhydramine HCl [Benadryl] 25 mg capsule 50 mg PO TID PRN (Reason: allergic reaction) Qty: 30 0RF
[2022-11-05 19:44] LABS: Basophils Percent Auto 0.1 % (0-2); Hematocrit 38.6 % (37.0-47.0); Hemoglobin 12.5 g/dl (12.0-16.0); Imm Gran Pct Auto 0.5 % (0.0-0.4); Lymphocytes Absolute Auto 0.9 X10*3/uL (1.2-4.9); Lymphocytes Percent Auto 4.3 % (20-40); MANUAL DIFF FLAG SCAN; Mean Corpuscular HGB Conc 32.4 g/dl (31.0-35.0); Mean Corpuscular Hemoglobin 25.5 pg (27.0-33.0); Mean Corpuscular Volume 78.8 fL (80.0-98.0); Mean Platelet Volume 11.1 fL (9.4-12.3); Monocytes Absolute Auto 0.8 X10*3/uL (0.1-1.2); Monocytes Percent Auto 3.5 % (2-11); Neutrophils Absolute Auto 19.5 x10*3/uL (2.0-8.3); Neutrophils Percent Auto 91.6 % (45-73); Platelet Count 317 X10*3/uL (160-400); Red Cell Distribution Width 15.6 % (11.0-16.0); SCAN SMEAR FLAG 1; White Blood Count 21.3 X10*3/uL (4.8-10.8)
[2022-11-05 19:55] LABS: INTERNATIONAL NORM RATIO 1.1 (0.9-1.1); Prothrombin Time 12.9 SEC (10.0-13.1)
[2022-11-05 20:00] LABS: Alanine Aminotransferase 22 U/L (0-31); Alkaline Phosphatase 83 U/L (39-117); Anion Gap 14 (12-20); Aspartate Amino Transferase 15 U/L (5-31); Bilirubin Direct 0.2 mg/dL (0.0-0.5); Bilirubin Total 0.6 mg/dL (0.0-1.0); Blood Urea Nitrogen 9 mg/dL (9-16); C Reactive Protein 4.54 mg/dL (< or = 0.50); Calcium 9.4 mg/dL (8.4-10.2); Carbon Dioxide 21 mmol/L (22-29); Chloride 105 mmol/L (96-108); Creatinine Clr Calc Pharmacy 110.2; Estimated Glomerular Filt Rate > 60; Glucose Random 111 mg/dL (60-115); Lipase 23 U/L (8-78); Magnesium 1.5 mg/dL (1.6-2.6); Potassium 3.4 mmol/L (3.3-5.1); Sodium 137 mmol/L (135-145)
[2022-11-05 20:11] LABS: SLIDE REVIEW VERIFIED
[2022-11-05] MEDS: 0.9 % Sodium Chloride 1,973.13 ML 1973.13 ML IV (20:14)
[2022-11-05 20:18] LABS: Influenza A PCR NEGATIVE (Negative); Influenza B PCR NEGATIVE (Negative); Resp Syncy Virus RNA Qual PCR NEGATIVE (Negative); SARS COV2 PCR INHOUSE NEGATIVE (Negative)
[2022-11-05] MEDS: Morphine Sulfate 4 MG/ML CARTRIDGE IVPUSH (20:21)
[2022-11-05] MEDS: ondansetron HCL 4 MG/2 ML VIAL IVPUSH (20:21)
[2022-11-05] MEDS: cefTRIAXone sodium 2 GM in 0.9 % Sodium Chloride 50 ML IV (20:21)
[2022-11-05 20:24] LABS: Appearance Urine Clear; Color Urine Yellow; Glucose Urine UA Negative (Negative); Leukocyte Esterase Urine Negative (Negative); Nitrite Urine Negative (Negative); PH 5.5 (5.0-9.0); Specific Gravity - Urine 1.025 (1.005-1.025); Urine Blood Negative (Negative); Urine Ketones Negative (Negative); Urine Protein Negative (Neg-Trace)
--- NOTE | 2022-11-05 20:28 | PC.NURSE ---
pt aox4, reporting 10/10 lower central abd pain tender to palpation that started this morning. associated N/V. Pt tachy on the monitor 115. Fluids infusing per MAR, ABX and medications given. Pt to Ultrasound now, pending return will start IV mag. pt tearful and anxious, partner at bedside
[2022-11-05 20:39] LABS: HCG Quantitative < 2 mIU/mL
[2022-11-05 20:40] LABS: Erythrocyte Sedimentation Rate 13 MM/HR (0-20)
[2022-11-05 20:51] VITALS: BP 101/56; PULSE 90; RESP 18; TEMP 36.7; O2SAT 96
[2022-11-05] MEDS: iohexoL 350 MG/ML 100 ML INFUS..BTL IV (21:08)
[2022-11-05] MEDS: Magnesium Sulfate/H2O 2 GM/50 ML PIGGYBACK IV (21:08)
[2022-11-05] MEDS: Morphine Sulfate 2 MG/ML CARTRIDGE 1 MG IVPUSH (21:30)
[2022-11-05 22:00] VITALS: BP 100/57; PULSE 95; RESP 18; TEMP 36.7
--- NOTE | 2022-11-05 22:07 | P.CONOB_ITS ---
MULE SPINNER - CN: HPI Data of Consult Consult date: 11/05/22 Primary Care Provider: Rae Hernandez MD Consult Narrative Narrative: I was consulted 9:51 pm on Irene Trejo who is a 32 year old female presented to the emergency room with abdominal pain started this morning, periumbilical pain that started radiating down to the suprapubic area, dull in nature and constant associated with nausea with no vomiting, No fever, chills.? No other GI or symptoms. cc:: CC: [facility] Past Medical History Medical History Asthma Hx of ovarian cyst Surgical History Surgical History Hx of section Social History Social History Alcohol intake: never Smoked in Last 30 Days: No Use of substances other than those prescribed or required for medical reasons: No Advance Directives: No Advance Directives Information Provided: No Meds Allergies Allergy/AdvReac Type Severity Reaction Status Date / Time No Known Allergies Allergy Verified 11/05/22 19:14 [No Known Allergies*] MULE SPINNER Physical Exam Vitals Vital signs: Temp Pulse Resp BP Pulse Ox O2 Del Method O2 Flow Rate 98.1 F 95 18 100/57 L 96 Room Air 97 11/05/22 22:00 11/05/22 22:00 11/05/22 22:00 11/05/22 22:00 11/05/22 20:51 11/05/22 22:00 11/05/22 22:00 BMI result Body Mass Index 25.7 Additional Comments: Abdominal exam reported by Dr. Jacobs as the following: Diffuse tender to the lower abdomen, voluntary guarding, rebound tenderness. Bowel sounds normal in all 4 quadrants. No distention noted.? No organomegaly noted.? No visible injury noted MULE SPINNER - Results Labs 11/05/22 19:32 11/05/22 19:33 Labs: Short CBC 11/05/22 Range/Units 19:32 WBC 21.3 H (4.8-10.8) X10*3/uL Hgb 12.5 (12.0-16.0) g/dl Hct 38.6 (37.0-47.0) % Plt Count 317 (160-400) X10*3/uL BMP 11/05/22 19:33 Sodium 137 Potassium 3.4 Chloride 105 Carbon Dioxide 21 L BUN 9 Creatinine 0.68 Calcium 9.4 D Liver Function 11/05/22 Range/Units 19:33 Total Bilirubin 0.6 (0.0-1.0) mg/dL Direct Bilirubin 0.2 (0.0-0.5) mg/dL AST 15 (5-31) U/L ALT 22 (0-31) U/L Alkaline Phosphatase 83 (39-117) U/L Albumin 4.0 (3.5-5.0) g/dL Urine 11/05/22 Range/Units 20:11 Urine Color Yellow Urine Appearance Clear Urine pH 5.5 (5.0-9.0) Ur Specific [place] 1.025 (1.005-1.025) Urine Protein Negative (Neg-Trace) mg/dL Urine Glucose (UA) Negative (Negative) mg/dL Imaging CT scan - pelvis: Radiologist's impression: ITS Impressions Doppler Study Ultrasound 11/05/22 20:39 IMPRESSION: Uterus is surgically absent. No acute abnormality seen. Pelvic/Transvag US 11/05/22 20:39 IMPRESSION: Uterus is surgically absent. No acute abnormality seen. Abdomen/Pelvis CT 11/05/22 21:09 IMPRESSION: 1. Right ovarian vein thrombosis. 2. Incidental note made of an enlarged fatty liver. 3. There are inflammatory changes seen in the fat surrounding some small bowel loops in the in the dome of the bladder of uncertain significance.. Fleischner guidelines were followed. This critical result was discussed with Dr. Jacobs at 9:44 PM on the evening of the exam and it was ascertained that the content and urgency of the report was understood at the time of direct communication. Assessment and Plan (1) Thrombosis of ovarian vein: Status: Acute Plan Discussed with Dr. Jacobs that ovarian vein thrombosis is a rare condition with potential life-threatening complications including pulmonary embolism , sepsis and even , I recommended prompt consultation with the hospitalist and/or hematology service to start the patient on anticoagulation saroj, rule out hypercoagulable conditions and transfer to [facility] for further management. I spent a total of 20 minutes reviewing the chart, documenting in the medical record and communicating with the emergency provider Time Spent With Patient Time: Total time managing care of this patient today ____ minutes.
[2022-11-05 22:31] VITALS: BMI 27.3
[2022-11-05] MEDS: 0.9 % Sodium Chloride 1,000 ML 999 ML IV (22:36)
[2022-11-05] MEDS: Heparin Sodium,Porcine 5,000 UNIT/ML VIAL 5600 UNIT IVPUSH (23:04)
[2022-11-05] MEDS: Heparin Sodium,Porcine/1/2NS 25,000 UNIT/250 ML IV.SOLN 9.8 UNIT IVCONT (23:05)
[2022-11-05 23:15] VITALS: BP 101/56; PULSE 113; RESP 18; TEMP 37.7; O2SAT 96
--- NOTE | 2022-11-05 23:56 | PC.NURSE ---
Report to Marie SYED at [address]
--- NOTE | 2022-11-06 00:03 | MHC.EDTECH ---
call out to [facility] at [phone] to book ALS transport, estimated ETA given was 0015
--- NOTE | 2022-11-06 00:30 | PC.NURSE ---
Report to [facility] crew. Heparin drip stopped prior to transfer per [facility] accepting attending physician.
[2022-11-06 12:00] LABS: CT PCR NOT DETECTED (Not Detect.); NG PCR NOT DETECTED (Not Detect.)
== END 2022-11-06 00:35 | disposition short-term general hospital (02) ==
PROVIDERS: Physician Assistant Medical; Emergency Provider Emergency Medicine; PCP Internal Medicine
DX: I82.890 Acute embolism and thrombosis of other specified veins (principal); R10.33 Periumbilical pain; R50.9 Fever, unspecified; N89.8 Other specified noninflammatory disorders of vagina; R10.2 Pelvic and perineal pain; Z20.822 Contact with and (suspected) exposure to COVID-19; Z20.828 Contact with and (suspected) exposure to other viral communicable diseases; Z79.899 Other long term (current) drug therapy
CPT/HCPCS: 0241U; 0353U; 36415; 74177; 76830; 76856; 80053; 81003; 82248; 83605; 83690; 83735; 84702; 85025; 85610; 85652; 85730; 86140; 87040; 93975; 96361; 96365; 96366; 96367; 96375; 99285; J0696; J1643; J2270; J2405; J3475; Q9967

== ENCOUNTER → 2022-11-05 20:15 | Outpatient (BNV) | payer OTHER, SELFPAY | PROVIDERS: Emergency Provider Emergency Medicine; PCP Internal Medicine; Visit Provider Obstetrics & Gynecology | DX: I82.890 Acute embolism and thrombosis of other specified veins (principal) | CPT/HCPCS: 99283 ==

== ENCOUNTER 2023-01-01 20:49 | Emergency (ER) | payer OTHER, SELFPAY ==
--- NOTE | 2023-01-01 20:58 | ECG_ITS ---
Test Reason : CHEST PAIN Blood Pressure : / mmHG Vent. Rate : 067 BPM Atrial Rate : 067 BPM P-R Int : 116 ms QRS Dur : 088 ms QT Int : 414 ms P-R-T Axes : 072 082 066 degrees QTc Int : 437 ms Normal sinus rhythm Incomplete right bundle branch block Abnormal ECG When compared with ECG of 09-JUL-2018 22:55, Vent. rate has decreased BY 36 BPM Referred By: Miranda Merritt Electronically Signed By:SANDOVAL MEDELLIN
== END 2023-01-01 21:44 | disposition left against medical advice (07) ==
LOC: HO.ED 21:44
PROVIDERS: Emergency Provider Emergency Medicine
DX: R07.89 Other chest pain (principal)
CPT/HCPCS: 93005; 99282

== ENCOUNTER 2023-01-18 07:46 | Emergency (ER) | payer OTHER, SELFPAY ==
[2023-01-18 07:47] VITALS: BP 113/71; PULSE 76; RESP 16; TEMP 37; O2SAT 100; BMI 26.1
[2023-01-18 08:13] LABS: COVID-19 Test Negative (Negative); IDNOW Serial# 08D9AD1C
[2023-01-18 08:26] LABS: IDNOW Serial# BCCEAD1C; Influenza A Negative (Negative); Influenza B2 Negative (Negative)
--- NOTE | 2023-01-18 09:29 | ED_ITS ---
HPI - General Adult General Chief complaint: Upper Respiratory Symptoms Stated complaint: asthma, headache Time Seen by Provider: 01/18/23 09:16 Source: patient Mode of arrival: ambulatory Limitations: no limitations History of Present Illness HPI narrative: 32 y o female PMH asthma presenting for evaluation of URI symptoms headache, sore throat, cough, congestion since yesterday. Also endorsing myalgias and marcelino ise. Used her albuterol inhaler last night with some relief, also took Mucinex with minimal relief. Reports son at home is also having similar symptoms. No chest pain, shortness of breath, wheezing, nausea, vomiting, diarrhea, abdominal pain, dizziness, fevers or chills Related Data Previous Rx's Medication Instructions Recorded albuterol sulfate 90 mcg/actuation 1 inh inhalation QID PRN shortness 03/01/20 aerosol inhaler (ProAir HFA) of breath or wheezing #18 grams prednisone 20 mg tablet 20 mg PO BID #10 tabs 03/01/20 diphenhydramine HCl 25 mg capsule 50 mg (2 x 25 mg) PO TID PRN 09/08/22 (Benadryl) allergic reaction #30 caps prednisone 20 mg tablet 40 mg (2 x 20 mg) PO DAILY #10 tabs 09/08/22 Allergies Allergy/AdvReac Type Severity Reaction Status Date / Time No Known Allergies Allergy Verified 11/05/22 19:14 [No Known Allergies*] Review of Systems Review of Systems: Constitutional : No Weight loss, No Fever, No Chills, +Fatigue, + Malaise ENT/Mouth : +sore throat, No Rhinorrhea, +Congestion Eyes: No Eye Pain, No Swelling, No Redness Cardiovascular : No Chest Pain, No SOB, No Dyspnea on Exertion, No Orthopnea, No Edema, No Palpitations Respiratory : +Cough, No Sputum, No Wheezing Gastrointestinal : No Nausea, No Vomiting, No Diarrhea, No Constipation, No abdominal Pain, No Hematochezia, No Melena Genitourinary : No Dysuria, No Urinary Frequency, No Hematuria, Musculoskeletal : No joint pain, +Myalgias, No Joint Swelling Skin : No Skin Lesions, No rash Neuro : No Weakness, No Numbness, No Dizziness, No Headache Psych : No Anxiety/Panic, No Depression All other systems reviewed and are negative Yes all other systems are reviewed and are negative [facility] Past Medical History Attestation statement: The following information was validated with the patient. Source: old records reviewed and nursing notes reviewed Medical History Hx of ovarian cyst Asthma Surgical History Hx of section Social History Social History Alcohol intake: never Advance Directives: No Advance Directives Information Provided: No Physical Exam ED Vital Signs: Vital Signs - 24 hr 01/18/23 07:47 Temperature 98.6 F Pulse Rate 76 Respiratory Rate 16 Blood Pressure 113/71 Pulse Oximetry 100 Oxygen Delivery Method Room Air BMI result Body Mass Index 26.1 VSS Appearance: Alert.? Oriented X3.? No acute distress.? Head: Normocephalic, atraumatic, no step-offs or deformities Eyes: Pupils equal, round and reactive to light.? ENT: Pharynx normal with mild erythema, no exudates, tonsils 1+ symmetric, no uvular shift.?Mild TTP of maxillary sinuses. External ears normal. No pain with manipulation of external ears bilaterally. No mastoid tenderness. Neck: Normal inspection.? Neck supple.? CVS: Normal heart rate and rhythm.? Pulses normal.? Respiratory: No respiratory distress.? Breath sounds normal.? Abdomen: Soft and nontender.? Skin: Skin warm and dry.? Normal skin color.? Normal skin turgor.? Extremities: No lower extremity edema.? No calf ttp. 5/5 strength to bilateral upper and lower extremities Neuro: Oriented X 3.? No motor deficit.? No sensory deficit. CN 2-12 intact Course Reevaluation(s) Reevaluation #1: Flu/covid negative. At this time patient to be discharged home with supportive measures. Vital signs stable 100% on room air. No adventitious breath sounds. Will give her a work note. Educated patient on diagnosis and treatment plan, answered all question, patient verbalizes understanding. At this time patient will be discharged home, advised to return with new or worsening symptoms. Educated on worrisome signs and symptoms and when to return. At this time I feel comfortable discharge home. Time: 09:55 Medical Decision Making Medical Decision Making MDM Narrative: 32 y o female presenting for evaluation of URI symptoms since last night. No shortness of breath or chest pain. PE significant for pharynx normal with mild erythema, no exudates, tonsils 1+ symmetric, no uvular shift.?Mild TTP of maxillary sinuses. Likely viral illness vs sinus infection vs COVID vs influenza vs bronchitis. Less likely asthma exacerbation given no shortness of breath, wheezing. I am not concerned for pneumonia, non toxic appearing, afebrile, lungs CTA in all porter. No signs of respiratory distress or airway compromise. PERC negative unlikely PE. No signs of SKIN WASHER, RPA or epigloitits Flu and COVID returned negative Plan -- Return home with supportive measures Differential Diagnosis Differential Diagnoses: The differential diagnosis associated with the presentation includes Likely viral illness vs sinus infection vs COVID vs influenza vs bronchitis. Less likely asthma exacerbation given no shortness of breath, wheezing. I am not concerned for pneumonia, non toxic appearing, afebrile, lungs CTA in all porter. No signs of respiratory distress or airway compromise. PERC negative unlikely PE. No signs of SKIN WASHER, RPA or epigloitits Admission/Observation Consideration of admission/observation: Escalation of care including admission/observation considered No indication Lab Data [facility] Lab Attestation statement: I reviewed the patient's lab results. Labs: Lab Results 01/18/23 Range/Units 07:53 COVID-19 (LUIS) Negative (Negative) COVID-19 Clin Com See Note Influenza Type A (RAÚL) Negative (Negative) Influenza Type B (RAÚL) Negative (Negative) Influenza A & B Note See Note External Record Review External record reviewed: Inpatient record Discharge Plan Discharge Clinical Impression: Viral illness Patient Disposition: Home, Self-Care Instructions: Viral Syndrome (ED) Additional Instructions: Take your medications as prescribed. If you were prescribed antibiotics today, it is important that you take your medication to their entirety, do not skip any doses, do not finish them early. Follow-up with your primary care provider this week. Return to the emergency department with new or worsening symptoms. In case of emergency call 911 You can take Ibuprofen every 6 hours and Tyelenol every 4 hours for pain, as well as over the counter Mucinex products. Increase your water intake to remain hydrated. Use your inhaler as needed. Prescriptions: No Action albuterol sulfate [ProAir HFA] 90 mcg/actuation HFA aerosol inhaler 1 inh inhalation QID PRN (Reason: shortness of breath or wheezing) Qty: 18 0RF prednisone 20 mg tablet 20 mg PO BID Qty: 10 0RF prednisone 20 mg tablet 40 mg PO DAILY Qty: 10 0RF diphenhydramine HCl [Benadryl] 25 mg capsule 50 mg PO TID PRN (Reason: allergic reaction) Qty: 30 0RF Referrals: ED Physician,Generic [Emergency Provider] - 1 week Stand Alone Forms: Work/School Release
== END 2023-01-18 10:00 | disposition home or self-care (01) ==
PROVIDERS: Emergency Provider Emergency Medicine
DX: B34.9 Viral infection, unspecified (principal); R51.9 Headache, unspecified; J02.9 Acute pharyngitis, unspecified; Z20.822 Contact with and (suspected) exposure to COVID-19; Z79.899 Other long term (current) drug therapy
CPT/HCPCS: 87502; 87635; 99283

== ENCOUNTER 2023-04-23 08:20 | Emergency (ER) | payer OTHER, SELFPAY ==
[2023-04-23 08:44] VITALS: BP 121/70; PULSE 74; RESP 16; TEMP 36.6; O2SAT 99; BMI 25.5
--- NOTE | 2023-04-23 09:59 | ED.GENADULT ---
HPI - General Adult General Chief complaint: Upper Respiratory Symptoms Stated complaint: Sore throat Time Seen by Provider: 04/23/23 09:27 Source: patient Mode of arrival: ambulatory Limitations: no limitations History of Present Illness HPI narrative: Patient is a 33-year-old female presenting to the emergency department with complaint of sore throat since yesterday. She also reports a mild cough. Denies difficulty swallowing. Denies fevers, nasal congestion, ear pain. Denies any shortness of breath, chest pain, palpitations. Denies any known sick contacts. Has not taken any [id number] medications for her symptoms. complaint: Sore throat Onset (ago): day(s) Severity: moderate Quality: burning Pain Consistency: constant Relieving factors: none Exacerbating factors: eating Associated symptoms: cough Treatments prior to arrival: none Related Data Previous Rx's Medication Instructions Recorded albuterol sulfate 90 mcg/actuation 1 inh inhalation QID PRN shortness 03/01/20 aerosol inhaler (ProAir HFA) of breath or wheezing #18 grams prednisone 20 mg tablet 20 mg PO BID #10 tabs 03/01/20 diphenhydramine HCl 25 mg capsule 50 mg (2 x 25 mg) PO TID PRN 09/08/22 (Benadryl) allergic reaction #30 caps prednisone 20 mg tablet 40 mg (2 x 20 mg) PO DAILY #10 tabs 09/08/22 Allergies Allergy/AdvReac Type Severity Reaction Status Date / Time No Known Allergies Allergy Verified 11/05/22 19:14 [No Known Allergies*] Review of Systems Review of Systems: As per HPI. Yes all other systems are reviewed and are negative Constitutional: Constitutional: Reports as per HPI [facility] Past Medical History Medical History Hx of ovarian cyst Asthma Surgical History Hx of section Social History Social History Alcohol intake: never Advance Directives: No Advance Directives Information Provided: No Physical Exam ED Vital Signs: Vital Signs - 24 hr 04/23/23 08:44 Temperature 98 F Pulse Rate 74 Respiratory Rate 16 Blood Pressure 121/70 Pulse Oximetry 99 Oxygen Delivery Method Room Air BMI result Body Mass Index 25.5 Vital signs have been reviewed and appear to be correct. Blood pressure normal. Heart rate normal. Respiratory rate normal. Temperature normal. Oxygen saturation normal. Const General: cooperative, healthy appearing and no acute distress Orientation/consciousness: oriented to person, oriented to place, oriented to time and patient oriented x3 Limitations: no limitations HENMT Head: Yes normocephalic and Yes atraumatic Ears: external ears normal General nose exam: Normal external nose present Face and sinus: Yes face symmetric Mouth: oropharynx normal and moist mucous membranes Throat: Yes uvula midline, No peritonsillar mass, No uvular edema and Yes cobblestoning Eyes Pupils: Equal, round and reactive pupils present Neck Neck: Yes normal visual inspection and Yes supple Lymphatic: no lymphadenopathy noted Resp Effort & Inspection: normal respiratory effort and able to speak in complete sentences Auscultation: clear to auscultation bilaterally Cardio Rate: regular rate Rhythm: regular rhythm Heart sounds: S1 normal heart sound present and S2 normal heart sound present GI Palpation (GI): Soft to palpation and nontender Auscultation: normoactive bowel sounds General: Yes no CVA tenderness Back/Spine/Pelvis Back: no CVA tenderness Skin General skin exam: elasticity normal and turgor normal Neuro General: oriented to person, oriented to place, oriented to time, patient oriented x3, moves all extremities, no focal motor deficits and CN's II-XI intact bilaterally Cranial nerves: Yes Equal, round and reactive pupils present Cognition (Neuro): normal cognition Extrem General: Yes full ROM, Yes no pedal edema and Yes no calf tenderness Psych Mental Status: mental status grossly normal Affect: normal affect Thought process: Normal thought process present Medical Decision Making Medical Decision Making MDM Narrative: Patient is a 33-year-old female presenting to the emergency department with complaint of sore throat since yesterday. On exam patient is awake, A+Ox3, VS WNL, afebrile, normal neurological exam without focal deficits, physical exam findings as above. Given reported symptoms and physical exam findings, initial differential includes strep pharyngitis vs viral illness (covid, flu). Swabs for flu, Covid, and strep all negative, patient updated on results. Discussed with patient that symptoms are likely related to viral pharyngitis, can not alternate Tylenol and ibuprofen, gargle with warm salt water, use warm tea with honey. Instructed patient to follow-up with primary care provider. Return precautions discussed. Patient verbalized understanding of and agreement with plan. Differential Diagnosis Differential Diagnoses: The differential diagnosis associated with the presentation includes As per [facility]. Lab Data [facility] Lab Attestation statement: I reviewed the patient's lab results. As per [facility]. Labs: Lab Results 04/23/23 Range/Units 10:06 COVID-19 (LUIS) Negative (Negative) COVID-19 Clin Com See Note Influenza Type A (RAÚL) Negative (Negative) Influenza Type B (RAÚL) Negative (Negative) Influenza A & B Note See Note S. pyogenes GrpA RAÚL Negative (Negative) External Record Review External record reviewed: Inpatient record, Office record and Outpatient record Discharge Plan Discharge Clinical Impression: Acute viral pharyngitis Patient Disposition: Home, Self-Care Instructions: Pharyngitis (ED) Additional Instructions: You were evaluated in the emergency department today for a sore throat. Your COVID, flu, and strep swabs were all negative. Your symptoms are likely related to a viral infection which will resolve on its own with time and rest. Be sure to drink adequate fluids. You can use Tylenol and ibuprofen per package directions as needed for discomfort. You can also gargle with warm salt water several times daily. Follow-up with your primary care provider this week. Return to the emergency department if you develop difficulty swallowing, worsening pain, shortness of breath, are unable to swallow your saliva, or any other concerning symptoms. Prescriptions: No Action albuterol sulfate [ProAir HFA] 90 mcg/actuation HFA aerosol inhaler 1 inh inhalation QID PRN (Reason: shortness of breath or wheezing) Qty: 18 0RF prednisone 20 mg tablet 20 mg PO BID Qty: 10 0RF prednisone 20 mg tablet 40 mg PO DAILY Qty: 10 0RF diphenhydramine HCl [Benadryl] 25 mg capsule 50 mg PO TID PRN (Reason: allergic reaction) Qty: 30 0RF
[2023-04-23 10:34] LABS: IDNOW Serial# 58CA691E; Strep A Nucleic Acid Negative (Negative)
[2023-04-23 10:41] LABS: COVID-19 Test Negative (Negative); IDNOW Serial# 08D9AD1C; IDNOW Serial# 6674DD1D
[2023-04-23 10:42] LABS: Influenza A Negative (Negative); Influenza B2 Negative (Negative)
== END 2023-04-23 11:08 | disposition home or self-care (01) ==
PROVIDERS: Registered Nurse Emergency; Emergency Provider Emergency Medicine
DX: J02.9 Acute pharyngitis, unspecified (principal); Z11.52 Encounter for screening for COVID-19; Z79.899 Other long term (current) drug therapy
CPT/HCPCS: 87502; 87635; 87651; 99283

== ENCOUNTER 2023-07-11 19:56 | Emergency (ER) | payer OTHER, SELFPAY ==
[2023-07-11 20:14] VITALS: BP 142/67; PULSE 82; RESP 20; TEMP 36.8; BMI 24.1
--- NOTE | 2023-07-11 20:17 | ED_ITS ---
HPI - General Adult General Chief complaint: Nausea/Vomiting/Diarrhea Stated complaint: nausea, sore throat, headache Time Seen by Provider: 07/12/23 04:14 Related Data Previous Rx's Medication Instructions Recorded albuterol sulfate 90 mcg/actuation 1 inh inhalation QID PRN shortness 03/01/20 aerosol inhaler (ProAir HFA) of breath or wheezing #18 grams prednisone 20 mg tablet 20 mg PO BID #10 tabs 03/01/20 diphenhydramine HCl 25 mg capsule 50 mg (2 x 25 mg) PO TID PRN 09/08/22 (Benadryl) allergic reaction #30 caps prednisone 20 mg tablet 40 mg (2 x 20 mg) PO DAILY #10 tabs 09/08/22 Allergies Allergy/AdvReac Type Severity Reaction Status Date / Time No Known Allergies Allergy Verified 07/11/23 20:18 [No Known Allergies*] PMFSH Past Medical History Medical History Hx of ovarian cyst Asthma Surgical History Hx of section Social History Social History Alcohol intake: never Advance Directives: No Advance Directives Information Provided: No Physical Exam ED Vital Signs: Vital Signs - 24 hr 07/11/23 20:14 Temperature 98.2 F Pulse Rate 82 Respiratory Rate 20 Blood Pressure 142/67 H BMI result Body Mass Index 24.1 Course Course Course Narrative: This is an RME: Additional HPI, ROS, PE not included below will be deferred to primary provider. This is a [id number], with a hx of ovarian cysts, presenting to to the emergency department with complaints of sore throat, cough, subjective fevers and chills, nausea, vomiting, and epigastric pain. Dry cough heard in triage. She is afebrile, all other vital signs within normal limits. No sick contacts Plan: COVID, flu, RSV, basic labs, will medicate with Tylenol and Zofran. Medications Administered Discontinued Medications Generic Name Dose Route Start Last Admin Trade Name Freq PRN Reason Stop Dose Admin Acetaminophen 975 mg 07/11/23 20:18 07/11/23 20:21 Acetaminophen 325 Mg Tablet PO 07/11/23 20:19 975 mg ONCE ONE Administration Ondansetron HCl 4 mg 07/11/23 20:18 07/11/23 20:21 Ondansetron Odt 4 Mg Tab.Pauladis TRANSLINGU 07/11/23 20:19 4 mg ONCE ONE Administration Medical Decision Making Lab Data 07/11/23 20:41 07/11/23 20:41 Labs: Lab Results 07/11/23 Range/Units 20:41 WBC 9.1 (4.8-10.8) X10*3/uL RBC 4.57 (4.20-5.50) X10*6/uL Hgb 12.7 (12.0-16.0) g/dl Hct 37.3 (37.0-47.0) % MCV 81.6 (80.0-98.0) fL MCH 27.8 (27.0-33.0) pg MCHC 34.0 (31.0-35.0) g/dl RDW 13.9 (11.0-16.0) % Plt Count 315 (160-400) X10*3/uL MPV 10.9 (9.4-12.3) fL Immature Gran % (Auto) 0.4 (0.0-0.4) % Neut % (Auto) 62.9 (45-73) % Lymph % (Auto) 27.0 (20-40) % [place] % (Auto) 7.5 (2-11) % Eos % (Auto) 1.9 (0-4) % Baso % (Auto) 0.3 (0-2) % Lymph # (Auto) 2.5 (1.2-4.9) X10*3/uL [place] # (Auto) 0.7 (0.1-1.2) X10*3/uL Eos # (Auto) 0.2 (0.0-0.4) X10*3/uL Baso # (Auto) 0.0 (0.0-0.2) X10*3/uL Abs Immat Gran (auto) 0.04 H (0.00-0.03) X10*3/uL Absolute Neuts (auto) 5.7 (2.0-8.3) x10*3/uL Absolute Nucleated RBC 0.000 (0.0-0.012) X10*3/uL Nucleated RBC % (auto) 0.0 (0.0-0.2) /100WBC Sodium 143 (135-145) mmol/L Potassium 3.5 (3.3-5.1) mmol/L Chloride 109 H (96-108) mmol/L Carbon Dioxide 28 (22-29) mmol/L Anion Gap 10 L (12-20) BUN 10 (9-16) mg/dL Creatinine 0.68 (0.5-1.4) mg/dL Estim Creat Clear Calc 107.8 Estimated GFR > 60 Random Glucose 80 (60-115) mg/dL Calcium 8.9 (8.4-10.2) mg/dL Magnesium 1.8 (1.6-2.6) mg/dL Total Bilirubin 0.2 (0.0-1.0) mg/dL Direct Bilirubin < 0.2 (0.0-0.5) mg/dL AST 13 (5-31) U/L ALT 19 (0-31) U/L Alkaline Phosphatase 95 (39-117) U/L Total Protein 6.4 L (6.5-8.0) g/dL Albumin 3.6 (3.5-5.0) g/dL Lipase 30 (8-78) U/L Beta HCG, Quant < 2 mIU/mL Influenza Type A (PCR) NEGATIVE (Negative) Influenza Type B (PCR) NEGATIVE (Negative) RSV RNA Qual (PCR) NEGATIVE (Negative) SARS-CoV-2 RNA (RT-PCR) NEGATIVE (Negative) S. pyogenes GrpA RAÚL Negative (Negative) Discharge Plan Discharge Clinical Impression: Headache Patient Disposition: Left W/O Completing Treatment Prescriptions: No Action albuterol sulfate [ProAir HFA] 90 mcg/actuation HFA aerosol inhaler 1 inh inhalation QID PRN (Reason: shortness of breath or wheezing) Qty: 18 0RF prednisone 20 mg tablet 20 mg PO BID Qty: 10 0RF prednisone 20 mg tablet 40 mg PO DAILY Qty: 10 0RF diphenhydramine HCl [Benadryl] 25 mg capsule 50 mg PO TID PRN (Reason: allergic reaction) Qty: 30 0RF Discharge Date/Time: 07/12/23 05:11
[2023-07-11] MEDS: Acetaminophen 325 MG TABLET 975 MG PO (20:21)
[2023-07-11] MEDS: Ondansetron ODT 4 MG TAB.RAPDIS TRANSLINGU (20:21)
[2023-07-11 20:47] LABS: MANUAL DIFF FLAG NO
[2023-07-11 20:48] LABS: Basophils Percent Auto 0.3 % (0-2); Eosinophils Absolute Auto 0.2 X10*3/uL (0.0-0.4); Eosinophils Percent Auto 1.9 % (0-4); Hematocrit 37.3 % (37.0-47.0); Hemoglobin 12.7 g/dl (12.0-16.0); Imm Gran Abs Auto 0.04 X10*3/uL (0.00-0.03); Imm Gran Pct Auto 0.4 % (0.0-0.4); Lymphocytes Absolute Auto 2.5 X10*3/uL (1.2-4.9); Mean Corpuscular Hemoglobin 27.8 pg (27.0-33.0); Mean Corpuscular Volume 81.6 fL (80.0-98.0); Mean Platelet Volume 10.9 fL (9.4-12.3); Monocytes Absolute Auto 0.7 X10*3/uL (0.1-1.2); Monocytes Percent Auto 7.5 % (2-11); Neutrophils Absolute Auto 5.7 x10*3/uL (2.0-8.3); Neutrophils Percent Auto 62.9 % (45-73); Platelet Count 315 X10*3/uL (160-400); Red Blood Count 4.57 X10*6/uL (4.20-5.50); Red Cell Distribution Width 13.9 % (11.0-16.0); White Blood Count 9.1 X10*3/uL (4.8-10.8)
[2023-07-11 21:01] LABS: IDNOW Serial# 08D9AD1C; Strep A Nucleic Acid Negative (Negative)
[2023-07-11 21:17] LABS: Alanine Aminotransferase 19 U/L (0-31); Albumin Level 3.6 g/dL (3.5-5.0); Alkaline Phosphatase 95 U/L (39-117); Anion Gap 10 (12-20); Aspartate Amino Transferase 13 U/L (5-31); Bilirubin Direct < 0.2 mg/dL (0.0-0.5); Bilirubin Total 0.2 mg/dL (0.0-1.0); Blood Urea Nitrogen 10 mg/dL (9-16); Calcium 8.9 mg/dL (8.4-10.2); Carbon Dioxide 28 mmol/L (22-29); Chloride 109 mmol/L (96-108); Creatinine Clr Calc Pharmacy 107.8; Estimated Glomerular Filt Rate > 60; Glucose Random 80 mg/dL (60-115); HCG Quantitative < 2 mIU/mL; Lipase 30 U/L (8-78); Magnesium 1.8 mg/dL (1.6-2.6); Potassium 3.5 mmol/L (3.3-5.1); Sodium 143 mmol/L (135-145); Total Protein 6.4 g/dL (6.5-8.0)
[2023-07-11 21:31] LABS: Influenza A PCR NEGATIVE (Negative); Influenza B PCR NEGATIVE (Negative); Resp Syncy Virus RNA Qual PCR NEGATIVE (Negative); SARS COV2 PCR INHOUSE NEGATIVE (Negative)
--- NOTE | 2023-07-12 04:53 | ED_ITS ---
HPI - Nausea/Vomiting/Diarrhea General Chief complaint: Nausea/Vomiting/Diarrhea Stated complaint: nausea, sore throat, headache Time Seen by Provider: 07/12/23 04:14 History of Present Illness HPI Narrative: I did not see this patient. She left prior to me evaluating her. Related Data Previous Rx's Medication Instructions Recorded albuterol sulfate 90 mcg/actuation 1 inh inhalation QID PRN shortness 03/01/20 aerosol inhaler (ProAir HFA) of breath or wheezing #18 grams prednisone 20 mg tablet 20 mg PO BID #10 tabs 03/01/20 diphenhydramine HCl 25 mg capsule 50 mg (2 x 25 mg) PO TID PRN 09/08/22 (Benadryl) allergic reaction #30 caps prednisone 20 mg tablet 40 mg (2 x 20 mg) PO DAILY #10 tabs 09/08/22 Allergies Allergy/AdvReac Type Severity Reaction Status Date / Time No Known Allergies Allergy Verified 07/11/23 20:18 [No Known Allergies*] PMFSH Past Medical History Medical History Hx of ovarian cyst Asthma Surgical History Hx of section Social History Social History Alcohol intake: never Advance Directives: No Advance Directives Information Provided: No Physical Exam 2 Vital Signs: Vital Signs: Last Vital Signs Temp 98.2 F 07/11/23 20:14 Pulse 82 07/11/23 20:14 Resp 20 07/11/23 20:14 BP 142/67 H 07/11/23 20:14 BMI result Body Mass Index 24.1 Medications Administered Discontinued Medications Generic Name Dose Route Start Last Admin Trade Name Freq PRN Reason Stop Dose Admin Acetaminophen 975 mg 07/11/23 20:18 07/11/23 20:21 Acetaminophen 325 Mg Tablet PO 07/11/23 20:19 975 mg ONCE ONE Administration Ondansetron HCl 4 mg 07/11/23 20:18 07/11/23 20:21 Ondansetron Odt 4 Mg Tab.Rapdis TRANSLINGU 07/11/23 20:19 4 mg ONCE ONE Administration Medical Decision Making Lab Data [facility] Lab Attestation statement: I reviewed the patient's lab results. 07/11/23 20:41 07/11/23 20:41 Labs: Lab Results 07/11/23 Range/Units 20:41 WBC 9.1 (4.8-10.8) X10*3/uL RBC 4.57 (4.20-5.50) X10*6/uL Hgb 12.7 (12.0-16.0) g/dl Hct 37.3 (37.0-47.0) % MCV 81.6 (80.0-98.0) fL MCH 27.8 (27.0-33.0) pg MCHC 34.0 (31.0-35.0) g/dl RDW 13.9 (11.0-16.0) % Plt Count 315 (160-400) X10*3/uL MPV 10.9 (9.4-12.3) fL Immature Gran % (Auto) 0.4 (0.0-0.4) % Neut % (Auto) 62.9 (45-73) % Lymph % (Auto) 27.0 (20-40) % [place] % (Auto) 7.5 (2-11) % Eos % (Auto) 1.9 (0-4) % Baso % (Auto) 0.3 (0-2) % Lymph # (Auto) 2.5 (1.2-4.9) X10*3/uL [place] # (Auto) 0.7 (0.1-1.2) X10*3/uL Eos # (Auto) 0.2 (0.0-0.4) X10*3/uL Baso # (Auto) 0.0 (0.0-0.2) X10*3/uL Abs Immat Gran (auto) 0.04 H (0.00-0.03) X10*3/uL Absolute Neuts (auto) 5.7 (2.0-8.3) x10*3/uL Absolute Nucleated RBC 0.000 (0.0-0.012) X10*3/uL Nucleated RBC % (auto) 0.0 (0.0-0.2) /100WBC Sodium 143 (135-145) mmol/L Potassium 3.5 (3.3-5.1) mmol/L Chloride 109 H (96-108) mmol/L Carbon Dioxide 28 (22-29) mmol/L Anion Gap 10 L (12-20) BUN 10 (9-16) mg/dL Creatinine 0.68 (0.5-1.4) mg/dL Estim Creat Clear Calc 107.8 Estimated GFR > 60 Random Glucose 80 (60-115) mg/dL Calcium 8.9 (8.4-10.2) mg/dL Magnesium 1.8 (1.6-2.6) mg/dL Total Bilirubin 0.2 (0.0-1.0) mg/dL Direct Bilirubin < 0.2 (0.0-0.5) mg/dL AST 13 (5-31) U/L ALT 19 (0-31) U/L Alkaline Phosphatase 95 (39-117) U/L Total Protein 6.4 L (6.5-8.0) g/dL Albumin 3.6 (3.5-5.0) g/dL Lipase 30 (8-78) U/L Beta HCG, Quant < 2 mIU/mL Influenza Type A (PCR) NEGATIVE (Negative) Influenza Type B (PCR) NEGATIVE (Negative) RSV RNA Qual (PCR) NEGATIVE (Negative) SARS-CoV-2 RNA (RT-PCR) NEGATIVE (Negative) S. pyogenes GrpA RAÚL Negative (Negative) Discharge Plan Discharge Clinical Impression: Headache Prescriptions: No Action albuterol sulfate [ProAir HFA] 90 mcg/actuation HFA aerosol inhaler 1 inh inhalation QID PRN (Reason: shortness of breath or wheezing) Qty: 18 0RF prednisone 20 mg tablet 20 mg PO BID Qty: 10 0RF prednisone 20 mg tablet 40 mg PO DAILY Qty: 10 0RF diphenhydramine HCl [Benadryl] 25 mg capsule 50 mg PO TID PRN (Reason: allergic reaction) Qty: 30 0RF
== END 2023-07-12 05:11 | disposition left against medical advice (07) ==
PROVIDERS: Physician Assistant Medical; Emergency Provider Emergency Medicine Emergency Medical Services
DX: R51.9 Headache, unspecified (principal); Z11.52 Encounter for screening for COVID-19; Z20.828 Contact with and (suspected) exposure to other viral communicable diseases
CPT/HCPCS: 0241U; 80048; 80076; 83690; 83735; 84702; 85025; 87651; 99282; 99283

== ENCOUNTER 2023-08-25 21:57 | Emergency (ER) | payer OTHER, SELFPAY ==
--- NOTE | 2023-08-25 | ECG_ITS ---
Test Reason : CHEST TIGHTNESS Blood Pressure : / mmHG Vent. Rate : 068 BPM Atrial Rate : 068 BPM P-R Int : 120 ms QRS Dur : 092 ms QT Int : 412 ms P-R-T Axes : 077 074 049 degrees QTc Int : 438 ms Normal sinus rhythm with sinus arrhythmia Normal ECG When compared with ECG of 01-JAN-2023 21:01, No significant change was found Referred By: Generic ED Physician Electronically Signed By:FAN ROGERS
--- NOTE | ~2023-08-25 | XR_ITS ---
EXAMINATION: XR CHEST CLINICAL INFORMATION: cough x1 week, asthma COMPARISON: Chest radiograph 03/01/2020 TECHNIQUE: 2 views of the chest were obtained. FINDINGS: The lungs are well expanded. No focal consolidation, effusion, edema, or pneumothorax. The cardiomediastinal silhouette is within normal limits for technique and unchanged. No acute osseous abnormality. XR/XR chest 2V IMPRESSION: No acute pulmonary disease. No significant interval change compared to 03/01/2020.
[2023-08-25 22:11] VITALS: BP 142/67; PULSE 83; RESP 18; TEMP 36.7; O2SAT 100; BMI 26.5
[2023-08-25 23:33] VITALS: PULSE 89; O2SAT 100
--- NOTE | 2023-08-26 00:05 | ED_ITS ---
HPI - General Adult General Chief complaint: Upper Respiratory Symptoms Stated complaint: sob - asthma Time Seen by Provider: 08/26/23 00:04 Source: patient Mode of arrival: ambulatory Limitations: no limitations History of Present Illness HPI narrative: Patient is a 33 year old assigned female at with a history of asthma presenting to the emergency department today with a cough. Patient states that over the last week she has had a worsening cough and asthma symptoms that her inhaler helps some but not entirely. Patient denies any dizziness, lightheadedness, abdominal pain, nausea, vomiting, fever, chills, blurry vision, double vision, loss of vision, chest pain, difficulty breathing, shortness of breath, back pain, night sweats, pain with urination, increased urinary frequency, increased urinary urgency, blood in her urine or stool, syncope or a near syncopal episode, recent trauma or falls, bowel incontinence, bladder incontinence, bowel retention, bladder retention, or any other complaints at t his time. Onset (ago): week(s) (1) Relieving factors: none Exacerbating factors: none Associated symptoms: cough Treatments prior to arrival: other (albuterol inhaler) Related Data Previous Rx's ?Medication ?Instructions ?Recorded albuterol sulfate 90 mcg/actuation 1 inh inhalation QID PRN shortness 03/01/20 aerosol inhaler (ProAir HFA) of breath or wheezing #18 grams prednisone 20 mg tablet 20 mg PO BID #10 tabs 03/01/20 diphenhydramine HCl 25 mg capsule 50 mg (2 x 25 mg) PO TID PRN 09/08/22 (Benadryl) allergic reaction #30 caps prednisone 20 mg tablet 40 mg (2 x 20 mg) PO DAILY #10 tabs 09/08/22 albuterol sulfate 90 mcg/actuation 1 inh inhalation QID #8.5 grams 08/26/23 aerosol inhaler prednisone 20 mg tablet 20 mg PO DAILY 12 days #26 tabs 08/26/23 Allergies Allergy/AdvReac Type Severity Reaction Status Date / Time No Known Allergies Allergy Verified 08/25/23 22:14 [No Known Allergies*] Review of Systems Constitutional: Constitutional: Reports no additional constitutional complaints, Denies chills, Denies fever(s) and Denies night sweats Eyes: Eyes: Reports no additional eye complaints, Denies blurry vision, Denies change in vision, Denies diplopia, Denies eye discharge, Denies loss of vision and Denies eye pain ENT: Denies dizziness Cardiovascular: Cardiovascular: Reports no additional cardiovascular complaints, Denies chest pain, Denies lightheadedness, Denies Loss of Consciousness and Denies dyspnea Respiratory: Respiratory: Reports no additional respiratory complaints, Reports cough and Denies dyspnea Gastrointestinal: Gastrointestinal: Reports no additional gastrointestinal com plaints, Denies abdominal pain, Denies melena, Denies hematochezia, Denies change in bowel habits and Denies change in stool character Genitourinary: Genitourinary: Denies hematuria, Denies urinary frequency, Denies dysuria, Denies urinary incontinence, Denies urinary hesitancy and Denies urinary urgency Musculoskeletal: Musculoskeletal: Reports no additional musculoskeletal complaints, Denies numbness and Denies tingling Neurologic: Denies dizziness, Denies loss of vision, Denies numbness and Denies tingling Psychiatric: Psychiatric: Reports no additional psychiatric complaints Endocrine: Endocrine: Reports no additional endocrine complaints Hematologic/Lymphatic: Hematologic/Lymphatic: Reports no additional hematologic/lymphatic complaints Allergic/Immunologic: Allergic/Immunologic: Reports no additional allergic/immunologic complaints [facility] Past Medical History Attestation statement: The following information was validated with the patient. Source: old records reviewed and nursing notes reviewed Medical History Hx of ovarian cyst Asthma Surgical History Hx of section Social History Social History Alcohol intake: never Smoked in Last 30 Days: No Use of substances other than those prescribed or required for medical reasons: No Advance Directives: No Advance Directives Information Provided: No Patient : No Physical Exam ED Vital Signs: Vital Signs - 24 hr 08/25/23 22:11 08/25/23 23:33 08/26/23 00:32 Temperature 98.1 F Pulse Rate 83 87 Respiratory Rate 18 16 Blood Pressure 142/67 H Pulse Oximetry 100 100 Oxygen Delivery Method Room Air Room Air 08/26/23 00:41 08/26/23 00:59 Temperature 98.4 F 98.4 F Pulse Rate 83 Respiratory Rate 16 Blood Pressure 112/77 112/77 Pulse Oximetry 100 Oxygen Delivery Method Room Air BMI result Body Mass Index 26.5 Const General: cooperative, no acute distress, alert and awake Nutritional Appearance: well nourished Orientation/consciousness: patient oriented x3 Limitations: no limitations HENMT Head: Yes normal to inspection and Yes atraumatic Ears: hearing grossly normal bilaterally and external ears normal General nose exam: Normal external nose present, no nasal discharge noted and no epistaxis Face and sinus: Yes normal facial exam, No abrasion and No laceration Mouth: Normal oral and palatal mucosa present, no drooling and no muffled voice Eyes General: appearance normal, both eyes and all related structures Periorbital: periorbital findings normal Eyelids: Yes eyelids normal Conjunctivae: conjunctivae normal Pupils: Equal, round and reactive pupils present EOM: EOMs intact bilaterally Neck Neck: Yes normal visual inspection, Yes full ROM and Yes no lymphadenopathy Chest Chest palpation & inspection: normal inspection of the chest Resp Effort & Inspection: normal respiratory effort and able to speak in complete sentences GI Inspection: Yes normal to inspection Neuro General: patient oriented x3 and moves all extremities Cranial nerves: Yes Equal, round and reactive pupils present Cognition (Neuro): normal cognition Motor exam (neuro): 5/5 motor strength present throughout Sensory Exam: Normal double simultaneous stimulation for sensation Coordination: [id number] test normal Extrem General: Yes normal to inspection, Yes full ROM and Yes capillary refill normal Psych Appearance: grossly normal Mental Status: mental status grossly normal Affect: normal affect Attitude: cooperative Thought process: Normal thought process present Thought content: Normal thought content present Insight: Good insight present (Psych) Medications Administered Discontinued Medications Generic Name Dose Route Start Last Admin Trade Name Mattyq PRN Reason Stop Dose Admin Albuterol Sulfate 2.5 mg/ 5 mg 08/26/23 00:28 08/26/23 00:30 Albuterol Sulfate 2.5 mg INHALE 08/26/23 00:29 5 mg ONCE ONE Administration Methylprednisolone Sodium Succinate 60 mg 08/26/23 00:04 08/26/23 00:18 Methylprednisolone Sod Succ 125 Mg/2 Ml Vial IM 08/26/23 00:05 60 mg ONCE ONE Administration Medical Decision Making Medical Decision Making [facility] Narrative: Patient is a 33 year old assigned female at with a history of asthma presenting to the emergency department today with a cough. Patient's physical exam was unremarkable. Patient's blood work was unremarkable. Patient's chest x- ray showed no acute process. I explained my physical exam findings as well as all test results to the patient. I answered all questions asked by the patient. Patient received IM solu-medrol and a breathing treatment while in the department which she stated helped her symptoms significantly. I stressed the importance of the patient taking her medication as prescribed. I stressed the importance of the patient following up with her primary care provider. I stressed the importance of the patient returning to the emergency department immediately if her symptoms were to worsen or if she were to develop any dizziness, shortness of breath, difficulty breathing, chest pain, blurry vision, loss of vision, nausea, vomiting, abdominal pain, fever, chills, back pain, or any other complaints. Patient verbalized agreement and understanding with this treatment plan and discharge. Differential Diagnosis Differential Diagnoses: The differential diagnosis associated with the presentation includes Asthma exacerbation Cough COVID-19 Influenza RSV Admission/Observation Consideration of admission/observation: Escalation of care including admission/observation considered Patient would have been admitted to the hospital had her work up had any findings where hospital admission was appropriate and her clinical presentation warranted hospital admission. Lab Data MDM Lab Attestation statement: I reviewed the patient's lab results. My interpretation of these studies and their corresponding values is that they are grossly normal. Labs: Lab Results 08/25/23 Range/Units 23:58 Influenza Type A (PCR) NEGATIVE (Negative) Influenza Type B (PCR) NEGATIVE (Negative) RSV RNA Qual (PCR) NEGATIVE (Negative) SARS-CoV-2 RNA (RT-PCR) NEGATIVE (Negative) S. pyogenes GrpA RAÚL Negative (Negative) Independent Interpretation I performed an independent interpretation of an: EKG and Plain X-Ray Interpretation: My interpretation is in agreement with the radiologist's impression of this imaging study. -------- EXAMINATION: XR CHEST CLINICAL INFORMATION: cough x1 week, asthma COMPARISON: Chest radiograph 03/01/2020 TECHNIQUE: 2 views of the chest were obtained. FINDINGS: The lungs are well expanded. No focal consolidation, effusion, edema, or pneumothorax. The cardiomediastinal silhouette is within normal limits for technique and unchanged. No acute osseous abnormality. XR/XR chest 2V IMPRESSION: No acute pulmonary disease. No significant interval change compared to 03/01/2020. Dictated By: Nel Anderson Signed By: Electronically signed by Nel Anderson 08/26/23 0028 Vent. Rate: 068 BPM Atrial Rate: 068 BPM P-R Int: 120 ms QRS Dur: 092 ms QT Int: 412 ms P-R-T Axes: 077 074 049 degrees QTc Int: 438 ms Normal sinus rhythm with sinus arrhythmia Normal ECG When compared with ECG of 01-JAN-2023 21:01, No significant change was found Electronically Signed By:ARCADIO WILSON Dictated By: Arcadio Wilson MD Signed By: Electronically signed by Arcadio Wilson MD 08/26/23 1319 Radiology Impression Discussion of test interpretation with radiology: I have reviewed the radiologist's reading. Discharge Plan Discharge Clinical Impression: Asthma exacerbation Patient Disposition: Home, Self-Care Instructions: Asthma (DC) Additional Instructions: Follow up with your primary care provider. Return to the emergency department immediately if your symptoms worsen or if you develop any dizziness, shortness of breath, difficulty breathing, chest pain, blurry vision, loss of vision, nausea, vomiting, abdominal pain, fever, chills, back pain, or any other complaints. Prescriptions: New prednisone 20 mg tablet 20 mg PO DAILY 12 Days Qty: 26 0RF Rx Instructions: Take 3 tablets for 5 days THEN; Take 2 tablets for 4 days THEN; Take 1 tablet for 3 days albuterol sulfate 90 mcg/actuation HFA aerosol inhaler 1 inh inhalation QID Qty: 8.5 0RF No Action albuterol sulfate [ProAir HFA] 90 mcg/actuation HFA aerosol inhaler 1 inh inhalation QID PRN (Reason: shortness of breath or wheezing) Qty: 18 0RF prednisone 20 mg tablet 20 mg PO BID Qty: 10 0RF prednisone 20 mg tablet 40 mg PO DAILY Qty: 10 0RF diphenhydramine HCl [Benadryl] 25 mg capsule 50 mg PO TID PRN (Reason: allergic reaction) Qty: 30 0RF Referrals: [facility] Family Medicine [Provider Group] (Call to establish and follow up with a [facility] care provider. If you already have a primary care provider, please follow up with them.) [facility] [Provider Group] [facility] [Provider Group] Stand Alone Forms: Work/School Release Interventions: ED Discharge Assessment Last Done: 08/26/23 00:59 Discharge Date/Time: 08/26/23 01:00 Print Language: Choose Not To Answer
[2023-08-26 00:15] LABS: IDNOW Serial# 6674DD1D; Strep A Nucleic Acid Negative (Negative)
[2023-08-26] MEDS: methylPREDNISolone Sod Succ 125 MG/2 ML VIAL 60 MG IM (00:18)
[2023-08-26] MEDS: Albuterol Sulfate 2.5 MG, Albuterol Sulfate (0.083%) 2.5 MG 5 MG INHALE (00:30)
[2023-08-26 00:32] VITALS: PULSE 87; RESP 16; O2SAT 99
[2023-08-26 00:41] VITALS: BP 112/77; TEMP 36.9
[2023-08-26 00:44] LABS: Influenza A PCR NEGATIVE (Negative); Influenza B PCR NEGATIVE (Negative); Resp Syncy Virus RNA Qual PCR NEGATIVE (Negative); SARS COV2 PCR INHOUSE NEGATIVE (Negative)
[2023-08-26 00:59] VITALS: BP 112/77; PULSE 83; RESP 16; TEMP 36.9; O2SAT 100
== END 2023-08-26 01:00 | disposition home or self-care (01) ==
PROVIDERS: Emergency Provider Emergency Medicine Emergency Medical Services
DX: J45.901 Unspecified asthma with (acute) exacerbation (principal); Z03.818 Encounter for observation for suspected exposure to other biological agents ruled out; R05.9 Cough, unspecified; Z79.899 Other long term (current) drug therapy
CPT/HCPCS: 0241U; 71046; 87651; 93005; 94640; 96372; 99284; 99285; J2919

== ENCOUNTER → 2023-08-25 22:53 | Outpatient (BNV) | payer OTHER, SELFPAY | PROVIDERS: Emergency Provider Emergency Medicine Emergency Medical Services; Visit Provider Internal Medicine | DX: R07.89 Other chest pain (principal) | CPT/HCPCS: 93010 ==

== ENCOUNTER 2024-03-15 23:48 | Emergency (ER) | payer OTHER, SELFPAY ==
--- NOTE | ~2024-03-15 | XR_ITS ---
EXAMINATION: XR CHEST CLINICAL INFORMATION: sob COMPARISON: None available. TECHNIQUE: Frontal view of the chest was obtained. FINDINGS: Normal appearance of the cardiomediastinal structures. No effusions or pneumothoraces. Normal pattern of pulmonary vasculature. No focal pulmonary consolidation. No skeletal abnormalities identified. XR/XR chest 1V IMPRESSION: Normal chest. Lungs clear. Electronically signed by: Skip Espinosa MD 03/16/2024 01:22 AM TITA
[2024-03-15 23:56] VITALS: BP 113/83; PULSE 75; RESP 20; TEMP 36.1; O2SAT 97; BMI 28.3
[2024-03-16 00:02] VITALS: BP 141/69; PULSE 97; RESP 15; TEMP 36.6; O2SAT 100
--- NOTE | 2024-03-16 00:04 | ED_ITS ---
HPI - Asthma General Chief Complaint: Asthma Stated Complaint: asthma, chest is tight Time Seen by Provider: 03/16/24 00:00 Source: patient Mode of arrival: ambulatory Limitations: no limitations History of Present Illness ED Provider: dora PUTNAM Narrative: Patient's history of asthma been increased short of breath for last 4 days tried her inhaler and nebulizing treatment without much relief dry cough no fever no chills Related Data Previous Rx's ?Medication ?Instructions ?Recorded albuterol sulfate 90 mcg/actuation 1 inh inhalation QID PRN shortness 03/01/20 aerosol inhaler (ProAir HFA) of breath or wheezing #18 grams prednisone 20 mg tablet 20 mg PO BID #10 tabs 03/01/20 diphenhydramine HCl 25 mg capsule 50 mg (2 x 25 mg) PO TID PRN 09/08/22 (Benadryl) allergic reaction #30 caps prednisone 20 mg tablet 40 mg (2 x 20 mg) PO DAILY #10 tabs 09/08/22 albuterol sulfate 90 mcg/actuation 1 inh inhalation QID #8.5 grams 08/26/23 aerosol inhaler prednisone 20 mg tablet 20 mg PO DAILY 12 days #26 tabs 08/26/23 benzonatate 200 mg capsule 200 mg PO TID PRN cough #20 caps 03/16/24 prednisone 20 mg tablet 40 mg (2 x 20 mg) PO DAILY #10 tabs 03/16/24 Allergies Allergy/AdvReac Type Severity Reaction Status Date / Time No Known Allergies Allergy Verified 03/15/24 23:57 [No Known Allergies*] Review of Systems 2 Review of Systems: Yes all other systems are reviewed and are negative PMFSH Past Medical History Medical History Hx of ovarian cyst Asthma Surgical History Hx of section Social History Social History Alcohol intake: never Smoked in Last 30 Days: No Use of substances other than those prescribed or required for medical reasons: No Do you have a plan to hurt others: No Plan Physical Exam 2 Vital Signs: Vital Signs: Last Vital Signs Temp 97.8 F 03/16/24 00:02 Pulse 86 03/16/24 00:10 Resp 20 03/16/24 00:10 BP 141/69 H 03/16/24 00:02 Pulse Ox 100 03/16/24 00:02 O2 Del Method Room Air 03/16/24 00:02 BMI result Body Mass Index 28.3 Appearance: Alert. Oriented X3. No acute distress. ENT: Pharynx normal. Oral Mucosa moist Neck: Normal inspection. Neck supple. CVS: Normal heart rate and rhythm. Pulses normal. Respiratory: No respiratory distress. Equal air entry bilateral, mitochondrial wheezing and prolonged expiration Skin: Skin warm and dry. Normal skin color. Normal skin turgor. Extremities: No lower extremity edema. Neuro: Oriented X 3. Medications Administered Discontinued Medications Generic Name Dose Route Start Last Admin Trade Name Freq PRN Reason Stop Dose Admin Albuterol/Ipratropium 3 ml 03/16/24 00:07 03/16/24 00:10 Albuterol/Iprat 2.5/0.5mg 3 Ml Ampul.Neb INHALE 03/16/24 00:08 3 ml ONCE ONE Administration Magnesium Sulfate 2 gm in 50 mls @ 150 mls/hr 03/16/24 00:00 03/16/24 00:33 Magnesium Sulfate/H2o IV 03/16/24 00:19 Infused ONCE ONE Infusion Methylprednisolone Sodium Succinate 125 mg 03/16/24 00:00 03/16/24 00:17 Methylprednisolone Sod Succ 125 Mg/2 Ml Vial IVPUSH 03/16/24 00:01 125 mg ONCE ONE Administration Medical Decision Making Medical Decision Making [facility] Narrative: Patient's asthmatic improved after steroids and IV magnesium and nebulizing treatment feeling much better now discharge patient home does have inhaler nebulizer will give prednisone Lab Data [facility] Lab Attestation statement: I reviewed the patient's lab results. 03/16/24 00:16 03/16/24 00:16 Labs: Lab Results 03/16/24 Range/Units 00:16 WBC 9.0 (4.8-10.8) X10*3/uL RBC 4.63 (4.20-5.50) X10*6/uL Hgb 13.1 (12.0-16.0) g/dl Hct 37.6 (37.0-47.0) % MCV 81.2 (80.0-98.0) fL MCH 28.3 (27.0-33.0) pg MCHC 34.8 (31.0-35.0) g/dl RDW 13.3 (11.0-16.0) % Plt Count 318 (160-400) X10*3/uL MPV 11.2 (9.4-12.3) fL Immature Gran % (Auto) 0.4 (0.0-0.4) % Neut % (Auto) 49.1 (45-73) % Lymph % (Auto) 38.4 (20-40) % Catron % (Auto) 9.7 (2-11) % Eos % (Auto) 2.0 (0-4) % Baso % (Auto) 0.4 (0-2) % Lymph # (Auto) 3.5 (1.2-4.9) X10*3/uL Catron # (Auto) 0.9 (0.1-1.2) X10*3/uL Eos # (Auto) 0.2 (0.0-0.4) X10*3/uL Baso # (Auto) 0.0 (0.0-0.2) X10*3/uL Abs Immat Gran (auto) 0.04 H (0.00-0.03) X10*3/uL Absolute Neuts (auto) 4.4 (2.0-8.3) x10*3/uL Absolute Nucleated RBC 0.000 (0.0-0.012) X10*3/uL Nucleated RBC % (auto) 0.0 (0.0-0.2) /100WBC Sodium 141 (135-145) mmol/L Potassium 3.7 (3.3-5.1) mmol/L Chloride 110 H (96-108) mmol/L Carbon Dioxide 20 L (22-29) mmol/L Anion Gap 15 (12-20) BUN 16 (9-16) mg/dL Creatinine 0.74 (0.5-1.4) mg/dL Estim Creat Clear Calc 104.1 Estimated GFR > 60 Random Glucose 101 (60-115) mg/dL Calcium 9.1 (8.4-10.2) mg/dL Total Bilirubin 0.2 (0.0-1.0) mg/dL AST 16 (5-31) U/L ALT 21 (0-31) U/L Alkaline Phosphatase 107 (39-117) U/L Total Protein 6.5 (6.5-8.0) g/dL Albumin 3.9 (3.5-5.0) g/dL Influenza Type A (PCR) NEGATIVE (Negative) Influenza Type B (PCR) NEGATIVE (Negative) RSV RNA Qual (PCR) NEGATIVE (Negative) SARS-CoV-2 RNA (RT-PCR) NEGATIVE (Negative) Independent Interpretation I performed an independent interpretation of an: Plain X-Ray Interpretation: NAD Discharge Plan Discharge Clinical Impression: Asthma with acute exacerbation Patient Disposition: Home, Self-Care Instructions: Asthma (ED) Additional Instructions: Continue to use your inhaler and nebulizing treatment Prednisone as advised Prescriptions: New benzonatate 200 mg capsule 200 mg PO TID PRN (Reason: cough) Qty: 20 0RF prednisone 20 mg tablet 40 mg PO DAILY Qty: 10 0RF No Action albuterol sulfate [ProAir HFA] 90 mcg/actuation HFA aerosol inhaler 1 inh inhalation QID PRN (Reason: shortness of breath or wheezing) Qty: 18 0RF prednisone 20 mg tablet 20 mg PO BID Qty: 10 0RF prednisone 20 mg tablet 40 mg PO DAILY Qty: 10 0RF diphenhydramine HCl [Benadryl] 25 mg capsule 50 mg PO TID PRN (Reason: allergic reaction) Qty: 30 0RF prednisone 20 mg tablet 20 mg PO DAILY 12 Days Qty: 26 0RF Rx Instructions: Take 3 tablets for 5 days THEN; Take 2 tablets for 4 days THEN; Take 1 tablet for 3 days albuterol sulfate 90 mcg/actuation HFA aerosol inhaler 1 inh inhalation QID Qty: 8.5 0RF Print Language: Choose Not To Answer
[2024-03-16 00:10] VITALS: PULSE 86; RESP 20
[2024-03-16] MEDS: Albuterol/Iprat 2.5/0.5MG 3 ML AMPUL.NEB INHALE (00:10)
--- NOTE | 2024-03-16 00:14 | MHC.EDTECH ---
This pct just assumed care of Patient ,vitals taken ,Patient was hooked up to monitor worker .
[2024-03-16] MEDS: methylPREDNISolone Sod Succ 125 MG/2 ML VIAL IVPUSH (00:17)
[2024-03-16] MEDS: Magnesium Sulfate/H2O 2 GM/50 ML PIGGYBACK IV (00:17)
[2024-03-16 00:20] LABS: MANUAL DIFF FLAG NO
[2024-03-16 00:34] LABS: Alanine Aminotransferase 21 U/L (0-31); Albumin Level 3.9 g/dL (3.5-5.0); Alkaline Phosphatase 107 U/L (39-117); Anion Gap 15 (12-20); Aspartate Amino Transferase 16 U/L (5-31); Basophils Percent Auto 0.4 % (0-2); Bilirubin Total 0.2 mg/dL (0.0-1.0); Blood Urea Nitrogen 16 mg/dL (9-16); Calcium 9.1 mg/dL (8.4-10.2); Carbon Dioxide 20 mmol/L (22-29); Chloride 110 mmol/L (96-108); Creatinine Clr Calc Pharmacy 104.1; Eosinophils Absolute Auto 0.2 X10*3/uL (0.0-0.4); Estimated Glomerular Filt Rate > 60; Glucose Random 101 mg/dL (60-115); Hematocrit 37.6 % (37.0-47.0); Hemoglobin 13.1 g/dl (12.0-16.0); Imm Gran Abs Auto 0.04 X10*3/uL (0.00-0.03); Imm Gran Pct Auto 0.4 % (0.0-0.4); Lymphocytes Absolute Auto 3.5 X10*3/uL (1.2-4.9); Lymphocytes Percent Auto 38.4 % (20-40); Mean Corpuscular HGB Conc 34.8 g/dl (31.0-35.0); Mean Corpuscular Hemoglobin 28.3 pg (27.0-33.0); Mean Corpuscular Volume 81.2 fL (80.0-98.0); Mean Platelet Volume 11.2 fL (9.4-12.3); Monocytes Absolute Auto 0.9 X10*3/uL (0.1-1.2); Monocytes Percent Auto 9.7 % (2-11); Neutrophils Absolute Auto 4.4 x10*3/uL (2.0-8.3); Neutrophils Percent Auto 49.1 % (45-73); Platelet Count 318 X10*3/uL (160-400); Potassium 3.7 mmol/L (3.3-5.1); Red Blood Count 4.63 X10*6/uL (4.20-5.50); Red Cell Distribution Width 13.3 % (11.0-16.0); Sodium 141 mmol/L (135-145); Total Protein 6.5 g/dL (6.5-8.0)
[2024-03-16 00:57] LABS: Influenza A PCR NEGATIVE (Negative); Influenza B PCR NEGATIVE (Negative); Resp Syncy Virus RNA Qual PCR NEGATIVE (Negative); SARS COV2 PCR INHOUSE NEGATIVE (Negative)
[2024-03-16 01:48] VITALS: BP 103/57; PULSE 74; RESP 16; TEMP 36.8; O2SAT 97
[2024-03-16 01:51] VITALS: BP 103/57; PULSE 74; RESP 16; TEMP 36.8; O2SAT 97
== END 2024-03-16 01:57 | disposition home or self-care (01) ==
PROVIDERS: Emergency Provider Internal Medicine; PCP Internal Medicine
DX: J45.901 Unspecified asthma with (acute) exacerbation (principal); R06.02 Shortness of breath; Z79.899 Other long term (current) drug therapy; Z03.818 Encounter for observation for suspected exposure to other biological agents ruled out
CPT/HCPCS: 0241U; 71045; 80053; 85025; 94640; 96365; 96375; 99284; 99285; J2919; J3475